=== PATIENT | male | born 1945 | race Caucasian/White ===

== ENCOUNTER 2017-11-02 11:39 | Emergency (ER) | payer MEDICARE, OTHER ==
[2017-11-02] MEDS: predniSONE 20 MG TAB PO (13:13)
[2017-11-02] MEDS: IPRATROPIUM (NEB) 0.5 MG/2.5 ML AMP HHN (13:21)
[2017-11-02] MEDS: ALBUTEROL 0.083% (NEB) 2.5 MG/3 ML AMP HHN (13:21)
== END 2017-11-02 16:20 | disposition home or self-care (01) ==
LOC: FTE 11:39
DX: J45.901 Unspecified asthma with (acute) exacerbation (principal); I10 Essential (primary) hypertension
CPT/HCPCS: 71045; 94664; 99284-25

== ENCOUNTER 2018-01-16 09:12 | Inpatient (IN) | payer MEDICARE, OTHER ==
[2018-01-16 14:37] LABS: ADD MAN DIFF? NO
[2018-01-16 14:56] LABS: ALANINE AMINOTRANSFERASE 45 IU/L (13-69); ALBUMIN 4.6 g/dl (3.3-4.9); ALBUMIN/GLOBULIN RATIO 1.09; ALKALINE PHOSPHATASE 137 IU/L (42-121); ANION GAP 18 (8-16); ASPARTATE AMINO TRANSFERASE 57 IU/L (15-46); BILIRUBIN,INDIRECT 0.3 mg/dl (0-1.1); BILIRUBIN,TOTAL 0.3 mg/dl (0.2-1.3); BLOOD UREA NITROGEN 22 mg/dl (7-20); CALCIUM 9.8 mg/dl (8.4-10.2); CARBON DIOXIDE 29 mmol/L (21-31); CHLORIDE 101 mmol/L (97-110); CREATINE KINASE 143 IU/L (23-200); CREATININE 1.23 mg/dl (0.61-1.24); GLUCOSE 122 mg/dl (70-220); LIPASE 322 U/L (23-300); POTASSIUM 4.7 mmol/L (3.5-5.1); SODIUM 143 mmol/L (135-144); TOTAL PROTEIN 8.8 g/dl (6.1-8.1)
[2018-01-16 14:59] LABS: WHITE BLOOD COUNT 6.4 10^3/ul (4.8-10.8)
[2018-01-16 14:59] LABS: BASOPHIL # 0.1 10^3/ul (0.0-0.1); BASOPHILS % 0.8 % (0.0-2.0); EOSINOPHILS # 0.1 10^3/ul (0.0-0.5); EOSINOPHILS % 1.6 % (0.0-7.0); HEMATOCRIT 31.8 % (42.0-52.0); HEMOGLOBIN 10.4 g/dl (14.0-18.0); LYMPHOCYTES # 0.9 10^3/ul (0.8-2.9); LYMPHOCYTES % 13.3 % (15.0-51.0); MEAN CORPUSCULAR HEMOGLOBIN 28.2 pg (29.0-33.0); MEAN CORPUSCULAR HGB CONC 32.7 g/dl (32.0-37.0); MEAN CORPUSCULAR VOLUME 86.2 fl (82.0-101.0); MEAN PLATELET VOLUME 11.1 fl (7.4-10.4); MONOCYTE # 0.7 10^3/ul (0.3-0.9); MONOCYTES % 10.2 % (0.0-11.0); NEUTROPHIL # 4.7 10^3/ul (1.6-7.5); NEUTROPHILS % 73.6 % (39.0-77.0); PLATELET COUNT 171 10^3/UL (140-415); RED BLOOD COUNT 3.69 10^6/ul (4.70-6.10); RED CELL DISTRIBUTION WIDTH 12.7 % (11.5-14.5)
[2018-01-16 15:05] LABS: INR 1.01; PROTIME 13.4 Sec (11.9-14.9)
[2018-01-16 15:06] LABS: PARTIAL THROMBOPLASTIN TIME 27.5 Sec (25.0-35.0)
[2018-01-16 15:23] LABS: B-TYPE NATRIURETIC PEPTIDE 110 PG/ML (0-125); CK INDEX 0.5
[2018-01-16 15:24] LABS: CK-MB 0.72 ng/ml (0.0-2.4); TROPONIN-I < 0.012 ng/ml (0.00-0.12)
[2018-01-16] MEDS: SOD CHLORIDE 0.9% 100 ML (15:27)
[2018-01-16] MEDS: IODIXANOL LOCM 100 ML BTL (15:27)
[2018-01-16] MEDS: IODIXANOL LOCM 50 ML BTL (15:27)
[2018-01-16] MEDS: ONDANSETRON 4 MG INJ IV (17:27)
[2018-01-16] MEDS: morphine 4 MG/ML VIAL IV (17:27)
[2018-01-16] MEDS: CEFTRIAXONE 1 GM/50 ML (PMX) 50 ML IVPB (18:23)
[2018-01-16] MEDS: AZITHROMYCIN 500MG/NS (PMX) 250 ML IV (19:09)
[2018-01-16 19:19] LABS: ADD UMIC YES; UR ASCORBIC ACID NEGATIVE (NEGATIVE); UR BILIRUBIN (Dip) NEGATIVE (NEGATIVE); UR BLOOD (Dip) NEGATIVE (NEGATIVE); UR CLARITY CLEAR (CLEAR); UR COLOR YELLOW (YELLOW); UR GLUCOSE (Dip) NEGATIVE (NEGATIVE); UR KETONES (Dip) NEGATIVE (NEGATIVE); UR LEUKOCYTE ESTERASE (Dip) NEGATIVE Leu/ul (NEGATIVE); UR NITRITE (Dip) NEGATIVE (NEGATIVE); UR RBC 1 /HPF (0-5); UR TOTAL PROTEIN (Dip) 1+ mg/dl (NEGATIVE); UR UROBILINOGEN (Dip) NEGATIVE (NEGATIVE); UR WBC 0 /HPF (0-5)
[2018-01-16] MEDS ORDERED: NITROGLYCERIN (SL) 0.4 MG TAB SL (20:00)
[2018-01-16] MEDS ORDERED: ACETAMINOPHEN 325 MG TAB PO (20:00)
[2018-01-16] MEDS ORDERED: ONDANSETRON 4 MG INJ IV ×2 (20:00)
[2018-01-16] MEDS ORDERED: NACL 0.9% 3 ML SYG IV (20:00)
[2018-01-16] MEDS: morphine 2 MG INJ IV (20:10)
[2018-01-16] MEDS: ENOXAPARIN 40 MG/0.4 ML SYG SC (20:24)
[2018-01-16] MEDS: AMLODIPINE 10 MG TAB PO (20:42)
[2018-01-16] MEDS: METOPROLOL 25 MG TAB PO (20:43)
[2018-01-16] MEDS: ATORVASTATIN 20 MG TAB PO (20:43)
[2018-01-16] MEDS: BENAZEPRIL 40 MG TAB PO (20:43)
[2018-01-16] MEDS: TAMSULOSIN (SR) 0.4 MG CAP PO (20:44)
[2018-01-16 22:55] LABS: CREATINE KINASE 104 IU/L (23-200)
[2018-01-16 23:09] LABS: CK INDEX 0.4
[2018-01-16 23:12] LABS: CK-MB 0.43 ng/ml (0.0-2.4); TROPONIN-I < 0.012 ng/ml (0.00-0.12)
[2018-01-17] MEDS: ASPIRIN 81 MG TAB PO (08:36)
[2018-01-17] MEDS: AMLODIPINE 10 MG TAB PO (08:40)
[2018-01-17] MEDS: BENAZEPRIL 40 MG TAB PO (08:40)
[2018-01-17] MEDS: METOPROLOL 25 MG TAB PO ×2 (08:41→21:08)
[2018-01-17] MEDS: ENOXAPARIN 40 MG/0.4 ML SYG SC (08:43)
[2018-01-17 08:47] LABS: ADD MAN DIFF? NO
[2018-01-17 08:52] LABS: BASOPHIL # 0.1 10^3/ul (0.0-0.1); BASOPHILS % 0.4 % (0.0-2.0); EOSINOPHILS % 0.1 % (0.0-7.0); HEMATOCRIT 31.6 % (42.0-52.0); HEMOGLOBIN 10.1 g/dl (14.0-18.0); LYMPHOCYTES # 1.1 10^3/ul (0.8-2.9); LYMPHOCYTES % 7.9 % (15.0-51.0); MEAN CORPUSCULAR HEMOGLOBIN 27.8 pg (29.0-33.0); MEAN CORPUSCULAR VOLUME 87.1 fl (82.0-101.0); MEAN PLATELET VOLUME 11.7 fl (7.4-10.4); MONOCYTE # 1.1 10^3/ul (0.3-0.9); MONOCYTES % 7.6 % (0.0-11.0); NEUTROPHIL # 11.6 10^3/ul (1.6-7.5); NEUTROPHILS % 83.5 % (39.0-77.0); PLATELET COUNT 211 10^3/UL (140-415); RED BLOOD COUNT 3.63 10^6/ul (4.70-6.10); RED CELL DISTRIBUTION WIDTH 12.8 % (11.5-14.5)
[2018-01-17 08:52] LABS: WHITE BLOOD COUNT 13.9 10^3/ul (4.8-10.8)
[2018-01-17 09:10] LABS: CREATINE KINASE 77 IU/L (23-200)
[2018-01-17 09:12] LABS: ALANINE AMINOTRANSFERASE 30 IU/L (13-69); ALBUMIN 4.2 g/dl (3.3-4.9); ALKALINE PHOSPHATASE 103 IU/L (42-121); ANION GAP 21 (8-16); ASPARTATE AMINO TRANSFERASE 38 IU/L (15-46); BILIRUBIN,INDIRECT 0.6 mg/dl (0-1.1); BILIRUBIN,TOTAL 0.6 mg/dl (0.2-1.3); BLOOD UREA NITROGEN 32 mg/dl (7-20); CALCIUM 9.1 mg/dl (8.4-10.2); CARBON DIOXIDE 24 mmol/L (21-31); CHLORIDE 99 mmol/L (97-110); CHOLESTEROL 97 mg/dl (100-200); CREATININE 2.69 mg/dl (0.61-1.24); GLUCOSE 142 mg/dl (70-220); HDL CHOLESTEROL 47 mg/dl (31-75); LDL CHOLESTEROL,CALCULATED 38 mg/dl; POTASSIUM 4.9 mmol/L (3.5-5.1); SODIUM 139 mmol/L (135-144); TOTAL PROTEIN 7.7 g/dl (6.1-8.1); TRIGLYCERIDES 62 mg/dl (0-149)
[2018-01-17 09:19] LABS: HEMOGLOBIN A1C 6.2 % (0-5.9)
[2018-01-17 09:23] LABS: CK INDEX 0.5
[2018-01-17 09:24] LABS: CK-MB 0.36 ng/ml (0.0-2.4); TROPONIN-I < 0.012 ng/ml (0.00-0.12)
[2018-01-17 09:34] LABS: LIPASE 243 U/L (23-300)
[2018-01-17 09:44] LABS: CARCINOEMBRYONIC ANTIGEN 2.8 ng/ml (0.0-5.0)
[2018-01-17] MEDS: SOD CHLORIDE 0.9% 1,000 ML IV ×2 (14:46→22:00)
[2018-01-17] MEDS ORDERED: CEFTRIAXONE 1 GM/50 ML (PMX) 50 ML IVPB (17:00)
[2018-01-17] MEDS ORDERED: AZITHROMYCIN 500MG/NS (PMX) 250 ML IVPB (18:00)
[2018-01-17] MEDS: PEG/ELECTROLYTES 4L BTL PO (18:35)
[2018-01-17] MEDS ORDERED: ENOXAPARIN 30 MG/0.3 ML SYG SC (20:30)
[2018-01-17] MEDS: ATORVASTATIN 20 MG TAB PO (21:08)
[2018-01-17] MEDS: TAMSULOSIN (SR) 0.4 MG CAP PO (21:08)
[2018-01-17] MEDS: ALBUTEROL/IPRATROPIUM (NEB) 3 ML AMP HHN (22:03)
[2018-01-17] MEDS: morphine 2 MG INJ IV (22:22)
[2018-01-18] MEDS: SOD CHLORIDE 0.9% 1,000 ML IV ×2 (01:19→10:00)
[2018-01-18] MEDS: ALBUTEROL/IPRATROPIUM (NEB) 3 ML AMP HHN ×5 (02:30→20:03)
[2018-01-18 06:07] LABS: ADD MAN DIFF? NO
[2018-01-18 06:15] LABS: BASOPHILS % 0.3 % (0.0-2.0); EOSINOPHILS # 0.1 10^3/ul (0.0-0.5); EOSINOPHILS % 0.9 % (0.0-7.0); HEMATOCRIT 26.6 % (42.0-52.0); HEMOGLOBIN 8.7 g/dl (14.0-18.0); LYMPHOCYTES # 0.7 10^3/ul (0.8-2.9); MEAN CORPUSCULAR HEMOGLOBIN 28.4 pg (29.0-33.0); MEAN CORPUSCULAR HGB CONC 32.7 g/dl (32.0-37.0); MEAN CORPUSCULAR VOLUME 86.9 fl (82.0-101.0); MEAN PLATELET VOLUME 11.3 fl (7.4-10.4); MONOCYTE # 1.4 10^3/ul (0.3-0.9); MONOCYTES % 12.9 % (0.0-11.0); NEUTROPHIL # 8.2 10^3/ul (1.6-7.5); NEUTROPHILS % 78.3 % (39.0-77.0); PLATELET COUNT 146 10^3/UL (140-415); RED BLOOD COUNT 3.06 10^6/ul (4.70-6.10); RED CELL DISTRIBUTION WIDTH 12.6 % (11.5-14.5)
[2018-01-18 06:15] LABS: WHITE BLOOD COUNT 10.5 10^3/ul (4.8-10.8)
[2018-01-18 06:57] LABS: ALANINE AMINOTRANSFERASE 34 IU/L (13-69); ALBUMIN 3.3 g/dl (3.3-4.9); ALKALINE PHOSPHATASE 91 IU/L (42-121); ANION GAP 17 (8-16); ASPARTATE AMINO TRANSFERASE 32 IU/L (15-46); BILIRUBIN,INDIRECT 0.4 mg/dl (0-1.1); BILIRUBIN,TOTAL 0.4 mg/dl (0.2-1.3); BLOOD UREA NITROGEN 41 mg/dl (7-20); CALCIUM 8.5 mg/dl (8.4-10.2); CARBON DIOXIDE 24 mmol/L (21-31); CHLORIDE 101 mmol/L (97-110); CREATININE 2.25 mg/dl (0.61-1.24); GLUCOSE 130 mg/dl (70-220); SODIUM 137 mmol/L (135-144); TOTAL PROTEIN 6.3 g/dl (6.1-8.1)
[2018-01-18 07:10] LABS: HEPATITIS B SURFACE ANTIGEN NEGATIVE (NEGATIVE)
[2018-01-18 07:28] LABS: HEPATITIS B CORE ANTIBODY NEGATIVE (NEGATIVE); HEPATITIS C VIRAL ANTIBODY NEGATIVE (NEGATIVE)
[2018-01-18 07:30] LABS: HEPATITIS B SURFACE ANTIBODY NEGATIVE (NEGATIVE)
[2018-01-18] MEDS: AMLODIPINE 10 MG TAB PO (09:00)
[2018-01-18] MEDS: ASPIRIN 81 MG TAB PO (09:00)
[2018-01-18] MEDS: METOPROLOL 25 MG TAB PO ×2 (09:43→20:19)
[2018-01-18] MEDS: BENAZEPRIL 40 MG TAB PO (10:10)
[2018-01-18] MEDS: ENOXAPARIN 30 MG/0.3 ML SYG SC (10:41)
[2018-01-18] MEDS ORDERED: EPHEDrine SULFATE 50 MG/5 ML SYG IV (17:30)
[2018-01-18] MEDS ORDERED: MEPERIDINE 25 MG INJ IV (17:30)
[2018-01-18] MEDS ORDERED: MIDAZOLAM 1 MG/ML 2 ML INJ IV (17:30)
[2018-01-18] MEDS ORDERED: FENTAnyl 50 MCG/ML VIAL IV ×3 (17:30)
[2018-01-18] MEDS ORDERED: METOCLOPRAMIDE 10 MG INJ IV (17:30)
[2018-01-18] MEDS ORDERED: hydrALAzine 20 MG INJ IV (17:30)
[2018-01-18] MEDS ORDERED: OXYCODONE/ACETAMINOPHEN (5/325) TAB PO ×2 (17:30)
[2018-01-18] MEDS ORDERED: DIPHENHYDRAMINE 50 MG INJ IV (17:30)
[2018-01-18] MEDS ORDERED: LABETALOL HCL 20MG INJ IV (17:30)
[2018-01-18] MEDS ORDERED: ONDANSETRON 4 MG INJ IV (17:30)
[2018-01-18] MEDS ORDERED: PROPOFOL 20 ML (18:03)
[2018-01-18] MEDS: ATORVASTATIN 20 MG TAB PO (20:18)
[2018-01-18] MEDS: TAMSULOSIN (SR) 0.4 MG CAP PO (20:18)
[2018-01-19] MEDS: ALBUTEROL/IPRATROPIUM (NEB) 3 ML AMP HHN ×6 (00:11→20:37)
[2018-01-19] MEDS: SOD CHLORIDE 0.9% 1,000 ML IV ×4 (01:37→22:26)
[2018-01-19] MEDS: ASPIRIN 81 MG TAB PO (10:06)
[2018-01-19] MEDS: AMLODIPINE 10 MG TAB PO (10:09)
[2018-01-19] MEDS: METOPROLOL 25 MG TAB PO ×2 (10:10→20:30)
[2018-01-19] MEDS: BENAZEPRIL 40 MG TAB PO (10:10)
[2018-01-19] MEDS: ENOXAPARIN 30 MG/0.3 ML SYG SC (10:28)
[2018-01-19 12:09] LABS: ANION GAP 10 (8-16); BLOOD UREA NITROGEN 25 mg/dl (7-20); CALCIUM 8.3 mg/dl (8.4-10.2); CARBON DIOXIDE 23 mmol/L (21-31); CHLORIDE 106 mmol/L (97-110); CREATININE 1.38 mg/dl (0.61-1.24); GLUCOSE 229 mg/dl (70-220); POTASSIUM 4.3 mmol/L (3.5-5.1); SODIUM 135 mmol/L (135-144)
[2018-01-19] MEDS: TAMSULOSIN (SR) 0.4 MG CAP PO (20:29)
[2018-01-19] MEDS: ATORVASTATIN 20 MG TAB PO (20:30)
[2018-01-20] MEDS: ALBUTEROL/IPRATROPIUM (NEB) 3 ML AMP HHN ×6 (00:29→20:54)
[2018-01-20] MEDS: SOD CHLORIDE 0.9% 1,000 ML IV (05:36)
[2018-01-20 06:22] LABS: ANION GAP 13 (8-16); BLOOD UREA NITROGEN 16 mg/dl (7-20); CALCIUM 8.7 mg/dl (8.4-10.2); CARBON DIOXIDE 23 mmol/L (21-31); CHLORIDE 107 mmol/L (97-110); CREATININE 1.15 mg/dl (0.61-1.24); GLUCOSE 127 mg/dl (70-220); POTASSIUM 4.2 mmol/L (3.5-5.1); SODIUM 139 mmol/L (135-144)
[2018-01-20] MEDS: ENOXAPARIN 30 MG/0.3 ML SYG SC (08:24)
[2018-01-20] MEDS: BENAZEPRIL 40 MG TAB PO (08:27)
[2018-01-20] MEDS: ASPIRIN 81 MG TAB PO (08:27)
[2018-01-20] MEDS: AMLODIPINE 10 MG TAB PO (08:27)
[2018-01-20] MEDS: METOPROLOL 25 MG TAB PO ×2 (08:27→20:06)
[2018-01-20] MEDS: TAMSULOSIN (SR) 0.4 MG CAP PO (20:05)
[2018-01-20] MEDS: ATORVASTATIN 20 MG TAB PO (20:06)
[2018-01-21] MEDS: hydrALAzine 20 MG INJ IV (01:07)
[2018-01-21] MEDS: morphine 2 MG INJ IV (01:28)
[2018-01-21] MEDS: ALBUTEROL/IPRATROPIUM (NEB) 3 ML AMP HHN ×6 (01:33→20:29)
[2018-01-21] MEDS: BENAZEPRIL 40 MG TAB PO (09:09)
[2018-01-21] MEDS: AMLODIPINE 10 MG TAB PO (09:09)
[2018-01-21] MEDS: ASPIRIN 81 MG TAB PO (09:09)
[2018-01-21] MEDS: METOPROLOL 25 MG TAB PO ×2 (09:10→21:00)
[2018-01-21] MEDS: ENOXAPARIN 30 MG/0.3 ML SYG SC (09:11)
[2018-01-21] MEDS ORDERED: DEXTROSE 50% 50 ML SYRINGE IV ×2 (12:00)
[2018-01-21] MEDS ORDERED: GLUCOSE GEL 15 GRAM TUBE BUCCAL (12:00)
[2018-01-21] MEDS ORDERED: GLUCOSE GEL 15 GRAM TUBE PO ×2 (12:00)
[2018-01-21] MEDS ORDERED: GLUCAGON 1 MG INJ IM (12:00)
[2018-01-21] MEDS: INSULIN ASPART [NOVOLOG] 3 ML PEN SC ×3 (12:15→21:00)
[2018-01-21 16:59] LABS: INR 1.19; PROTIME 15.3 Sec (11.9-14.9); PT RATIO 1.2
[2018-01-21 17:00] LABS: PARTIAL THROMBOPLASTIN TIME 40.6 Sec (25.0-35.0)
[2018-01-21 20:11] LABS: PSA, FREE <0.1 ng/mL
[2018-01-21] MEDS: ATORVASTATIN 20 MG TAB PO (20:59)
[2018-01-21] MEDS: TAMSULOSIN (SR) 0.4 MG CAP PO (20:59)
[2018-01-21] MEDS: ALBUTEROL HFA 8 GM INHALER INH (21:12)
[2018-01-22] MEDS: ALBUTEROL/IPRATROPIUM (NEB) 3 ML AMP HHN ×6 (01:03→20:18)
[2018-01-22] MEDS: ACCU-CHEK XX (02:00)
[2018-01-22 05:36] LABS: ADD MAN DIFF? NO
[2018-01-22 05:43] LABS: ABNORMAL IP MESSAGE 1; BASOPHILS % 0.2 % (0.0-2.0); EOSINOPHILS # 0.3 10^3/ul (0.0-0.5); EOSINOPHILS % 2.9 % (0.0-7.0); HEMATOCRIT 24.7 % (42.0-52.0); HEMOGLOBIN 7.9 g/dl (14.0-18.0); LYMPHOCYTES # 0.6 10^3/ul (0.8-2.9); LYMPHOCYTES % 6.6 % (15.0-51.0); MEAN CORPUSCULAR HEMOGLOBIN 28.1 pg (29.0-33.0); MEAN CORPUSCULAR VOLUME 87.9 fl (82.0-101.0); MEAN PLATELET VOLUME 10.9 fl (7.4-10.4); MONOCYTE # 1.3 10^3/ul (0.3-0.9); NEUTROPHIL # 6.4 10^3/ul (1.6-7.5); NEUTROPHILS % 74.7 % (39.0-77.0); PLATELET COUNT 169 10^3/UL (140-415); POSITIVE DIFF @See below; RED BLOOD COUNT 2.81 10^6/ul (4.70-6.10); RED CELL DISTRIBUTION WIDTH 12.6 % (11.5-14.5)
[2018-01-22 05:43] LABS: WHITE BLOOD COUNT 8.5 10^3/ul (4.8-10.8)
[2018-01-22 06:24] LABS: ANION GAP 14 (8-16); BLOOD UREA NITROGEN 24 mg/dl (7-20); CALCIUM 8.7 mg/dl (8.4-10.2); CARBON DIOXIDE 25 mmol/L (21-31); CHLORIDE 105 mmol/L (97-110); CREATININE 1.45 mg/dl (0.61-1.24); GLUCOSE 109 mg/dl (70-220); MAGNESIUM 2.1 mg/dl (1.7-2.5); POTASSIUM 4.7 mmol/L (3.5-5.1); SODIUM 139 mmol/L (135-144)
[2018-01-22 06:24] LABS: PHOSPHORUS 4.3 mg/dl (2.5-4.9)
[2018-01-22] MEDS: INSULIN ASPART [NOVOLOG] 3 ML PEN SC ×4 (08:15→21:00)
[2018-01-22] MEDS: ASPIRIN 81 MG TAB PO (08:58)
[2018-01-22] MEDS: METOPROLOL 25 MG TAB PO ×2 (08:58→21:19)
[2018-01-22] MEDS: BENAZEPRIL 40 MG TAB PO ×2 (08:58→21:19)
[2018-01-22] MEDS: AMLODIPINE 10 MG TAB PO ×2 (08:58→21:20)
[2018-01-22] MEDS: ENOXAPARIN 30 MG/0.3 ML SYG SC (08:59)
[2018-01-22] MEDS: SOD CHLORIDE 0.9% 250 ML (14:30)
[2018-01-22] MEDS: MIDAZOLAM 1 MG/ML 2 ML INJ (14:30)
[2018-01-22] MEDS: FENTAnyl 50 MCG/ML VIAL (14:30)
[2018-01-22] MEDS: LIDOCAINE 1% (MDV) 10 ML INJ (14:30)
[2018-01-22] MEDS: morphine 2 MG INJ IV ×2 (17:18→23:38)
[2018-01-22] MEDS: TAMSULOSIN (SR) 0.4 MG CAP PO (21:18)
[2018-01-22] MEDS: ATORVASTATIN 20 MG TAB PO (21:18)
[2018-01-23] MEDS: SOD CHLORIDE 0.9% 500 ML IV (00:53)
[2018-01-23] MEDS: ALBUTEROL/IPRATROPIUM (NEB) 3 ML AMP HHN ×6 (01:43→20:33)
[2018-01-23] MEDS: ACCU-CHEK XX (02:00)
[2018-01-23 05:57] LABS: ADD MAN DIFF? NO
[2018-01-23 05:58] LABS: WHITE BLOOD COUNT 13.3 10^3/ul (4.8-10.8)
[2018-01-23 05:58] LABS: ABNORMAL IP MESSAGE 1; BASOPHILS % 0.2 % (0.0-2.0); EOSINOPHILS # 0.1 10^3/ul (0.0-0.5); EOSINOPHILS % 0.5 % (0.0-7.0); HEMATOCRIT 28.3 % (42.0-52.0); LYMPHOCYTES % 7.4 % (15.0-51.0); MEAN CORPUSCULAR HEMOGLOBIN 28.1 pg (29.0-33.0); MEAN CORPUSCULAR HGB CONC 31.8 g/dl (32.0-37.0); MEAN CORPUSCULAR VOLUME 88.4 fl (82.0-101.0); MEAN PLATELET VOLUME 10.5 fl (7.4-10.4); MONOCYTE # 1.8 10^3/ul (0.3-0.9); MONOCYTES % 13.5 % (0.0-11.0); NEUTROPHIL # 10.4 10^3/ul (1.6-7.5); NEUTROPHILS % 77.8 % (39.0-77.0); PLATELET COUNT 228 10^3/UL (140-415); POSITIVE DIFF @See below; RED CELL DISTRIBUTION WIDTH 12.8 % (11.5-14.5)
[2018-01-23 06:16] LABS: ANION GAP 16 (8-16); BLOOD UREA NITROGEN 27 mg/dl (7-20); CALCIUM 8.6 mg/dl (8.4-10.2); CARBON DIOXIDE 23 mmol/L (21-31); CHLORIDE 104 mmol/L (97-110); CREATININE 1.57 mg/dl (0.61-1.24); GLUCOSE 139 mg/dl (70-220); POTASSIUM 4.6 mmol/L (3.5-5.1); SODIUM 138 mmol/L (135-144)
[2018-01-23] MEDS: BENAZEPRIL 40 MG TAB PO (08:26)
[2018-01-23] MEDS: AMLODIPINE 10 MG TAB PO (08:26)
[2018-01-23] MEDS: METOPROLOL 25 MG TAB PO ×2 (08:26→20:39)
[2018-01-23] MEDS: morphine 2 MG INJ IV (08:33)
[2018-01-23] MEDS: INSULIN ASPART [NOVOLOG] 3 ML PEN SC ×4 (08:57→20:39)
[2018-01-23] MEDS ORDERED: morphine 2 MG INJ IV (12:30)
[2018-01-23] MEDS: TAMSULOSIN (SR) 0.4 MG CAP PO (20:38)
[2018-01-23] MEDS: ATORVASTATIN 20 MG TAB PO (20:38)
[2018-01-23] MEDS ORDERED: ALBUTEROL/IPRATROPIUM (NEB) 3 ML AMP HHN (23:30)
[2018-01-24] MEDS: ACCU-CHEK XX (01:39)
[2018-01-24 07:34] LABS: ADD MAN DIFF? NO
[2018-01-24 07:52] LABS: WHITE BLOOD COUNT 14.6 10^3/ul (4.8-10.8)
[2018-01-24 07:52] LABS: ABNORMAL IP MESSAGE 1; BASOPHILS % 0.2 % (0.0-2.0); EOSINOPHILS # 0.1 10^3/ul (0.0-0.5); EOSINOPHILS % 0.9 % (0.0-7.0); HEMATOCRIT 23.8 % (42.0-52.0); HEMOGLOBIN 7.6 g/dl (14.0-18.0); LYMPHOCYTES # 0.8 10^3/ul (0.8-2.9); LYMPHOCYTES % 5.4 % (15.0-51.0); MEAN CORPUSCULAR HGB CONC 31.9 g/dl (32.0-37.0); MEAN CORPUSCULAR VOLUME 87.8 fl (82.0-101.0); MEAN PLATELET VOLUME 11.3 fl (7.4-10.4); MONOCYTE # 1.9 10^3/ul (0.3-0.9); MONOCYTES % 12.8 % (0.0-11.0); NEUTROPHIL # 11.6 10^3/ul (1.6-7.5); NEUTROPHILS % 79.9 % (39.0-77.0); NUCLEATED RED BLOOD CELLS% 0.1 /100WBC (0.0-0.0); PLATELET COUNT 197 10^3/UL (140-415); POSITIVE DIFF @See below; RED BLOOD COUNT 2.71 10^6/ul (4.70-6.10); RED CELL DISTRIBUTION WIDTH 13.1 % (11.5-14.5)
[2018-01-24] MEDS: INSULIN ASPART [NOVOLOG] 3 ML PEN SC ×4 (08:15→21:00)
[2018-01-24 08:19] LABS: ANION GAP 15 (8-16); BLOOD UREA NITROGEN 45 mg/dl (7-20); CALCIUM 8.3 mg/dl (8.4-10.2); CARBON DIOXIDE 22 mmol/L (21-31); CHLORIDE 104 mmol/L (97-110); CREATININE 2.37 mg/dl (0.61-1.24); GLUCOSE 129 mg/dl (70-220); POTASSIUM 5.1 mmol/L (3.5-5.1); SODIUM 136 mmol/L (135-144)
[2018-01-24] MEDS: AMLODIPINE 10 MG TAB PO (08:56)
[2018-01-24] MEDS: METOPROLOL 25 MG TAB PO ×2 (08:57→21:31)
[2018-01-24] MEDS: BENAZEPRIL 40 MG TAB PO (08:57)
[2018-01-24] MEDS: ALBUTEROL/IPRATROPIUM (NEB) 3 ML AMP HHN ×4 (09:05→20:02)
[2018-01-24] MEDS: IOHEXOL 14.3 MG(I)/ML (ADULT) BTL PO (12:30)
[2018-01-24] MEDS: LACTATED RINGER'S 1,000 ML IV ×2 (13:25→20:30)
[2018-01-24 14:57] LABS: HEMOGLOBIN 7.4 g/dl (14.0-18.0)
[2018-01-24] MEDS: PIPER-TAZO 2.25 GM (PMX) 50 ML IVPB (21:26)
[2018-01-24] MEDS: ATORVASTATIN 20 MG TAB PO (21:31)
[2018-01-24] MEDS: TAMSULOSIN (SR) 0.4 MG CAP PO (21:31)
[2018-01-25] MEDS: PIPER-TAZO 2.25 GM (PMX) 50 ML IVPB ×4 (01:07→20:57)
[2018-01-25] MEDS: ACCU-CHEK XX (02:00)
[2018-01-25] MEDS: LACTATED RINGER'S 1,000 ML IV ×3 (02:25→20:58)
[2018-01-25 06:07] LABS: ADD MAN DIFF? NO
[2018-01-25 06:22] LABS: WHITE BLOOD COUNT 12.4 10^3/ul (4.8-10.8)
[2018-01-25 06:22] LABS: BASOPHILS % 0.2 % (0.0-2.0); EOSINOPHILS # 0.1 10^3/ul (0.0-0.5); EOSINOPHILS % 0.7 % (0.0-7.0); HEMATOCRIT 22.6 % (42.0-52.0); HEMOGLOBIN 7.4 g/dl (14.0-18.0); LYMPHOCYTES # 0.7 10^3/ul (0.8-2.9); LYMPHOCYTES % 5.4 % (15.0-51.0); MEAN CORPUSCULAR HEMOGLOBIN 28.5 pg (29.0-33.0); MEAN CORPUSCULAR HGB CONC 32.7 g/dl (32.0-37.0); MEAN CORPUSCULAR VOLUME 86.9 fl (82.0-101.0); MEAN PLATELET VOLUME 10.9 fl (7.4-10.4); MONOCYTE # 1.4 10^3/ul (0.3-0.9); MONOCYTES % 11.2 % (0.0-11.0); NEUTROPHIL # 10.1 10^3/ul (1.6-7.5); NEUTROPHILS % 81.9 % (39.0-77.0); PLATELET COUNT 184 10^3/UL (140-415)
[2018-01-25 06:35] LABS: ANION GAP 13 (8-16); BLOOD UREA NITROGEN 47 mg/dl (7-20); CALCIUM 8.3 mg/dl (8.4-10.2); CARBON DIOXIDE 23 mmol/L (21-31); CHLORIDE 106 mmol/L (97-110); CREATININE 1.88 mg/dl (0.61-1.24); GLUCOSE 113 mg/dl (70-220); POTASSIUM 4.7 mmol/L (3.5-5.1); SODIUM 137 mmol/L (135-144)
[2018-01-25] MEDS: INSULIN ASPART [NOVOLOG] 3 ML PEN SC ×4 (08:07→20:58)
[2018-01-25] MEDS: ALBUTEROL/IPRATROPIUM (NEB) 3 ML AMP HHN ×4 (08:32→20:39)
[2018-01-25] MEDS: BENAZEPRIL 40 MG TAB PO (09:36)
[2018-01-25] MEDS: METOPROLOL 25 MG TAB PO ×2 (09:37→20:58)
[2018-01-25] MEDS: AMLODIPINE 10 MG TAB PO (09:37)
[2018-01-25] MEDS: SOD CHLORIDE 0.9% 250 ML IV* (10:42)
[2018-01-25 16:18] LABS: IMMEDIATE SPIN CROSSMATCH 1 1
[2018-01-25] MEDS: ATORVASTATIN 20 MG TAB PO (20:57)
[2018-01-25] MEDS: TAMSULOSIN (SR) 0.4 MG CAP PO (20:57)
[2018-01-26] MEDS: ACCU-CHEK XX (02:00)
[2018-01-26 06:11] LABS: ADD MAN DIFF? NO
[2018-01-26 06:16] LABS: WHITE BLOOD COUNT 10.9 10^3/ul (4.8-10.8)
[2018-01-26 06:16] LABS: BASOPHILS % 0.3 % (0.0-2.0); EOSINOPHILS # 0.2 10^3/ul (0.0-0.5); EOSINOPHILS % 1.4 % (0.0-7.0); HEMATOCRIT 25.5 % (42.0-52.0); HEMOGLOBIN 8.2 g/dl (14.0-18.0); LYMPHOCYTES # 0.6 10^3/ul (0.8-2.9); LYMPHOCYTES % 5.5 % (15.0-51.0); MEAN CORPUSCULAR HEMOGLOBIN 27.7 pg (29.0-33.0); MEAN CORPUSCULAR HGB CONC 32.2 g/dl (32.0-37.0); MEAN CORPUSCULAR VOLUME 86.1 fl (82.0-101.0); MEAN PLATELET VOLUME 10.8 fl (7.4-10.4); MONOCYTE # 1.2 10^3/ul (0.3-0.9); MONOCYTES % 11.1 % (0.0-11.0); NEUTROPHIL # 8.8 10^3/ul (1.6-7.5); NEUTROPHILS % 80.8 % (39.0-77.0); PLATELET COUNT 194 10^3/UL (140-415); RED BLOOD COUNT 2.96 10^6/ul (4.70-6.10); RED CELL DISTRIBUTION WIDTH 14.1 % (11.5-14.5)
[2018-01-26 06:42] LABS: ANION GAP 15 (8-16); BLOOD UREA NITROGEN 34 mg/dl (7-20); CALCIUM 8.3 mg/dl (8.4-10.2); CARBON DIOXIDE 22 mmol/L (21-31); CHLORIDE 108 mmol/L (97-110); CREATININE 1.48 mg/dl (0.61-1.24); GLUCOSE 105 mg/dl (70-220); POTASSIUM 4.5 mmol/L (3.5-5.1); SODIUM 140 mmol/L (135-144)
[2018-01-26] MEDS: PIPER-TAZO 2.25 GM (PMX) 50 ML IVPB ×5 (06:52→23:35)
[2018-01-26] MEDS: ALBUTEROL/IPRATROPIUM (NEB) 3 ML AMP HHN ×4 (07:52→20:17)
[2018-01-26] MEDS: INSULIN ASPART [NOVOLOG] 3 ML PEN SC ×4 (08:15→20:56)
[2018-01-26] MEDS: BENAZEPRIL 40 MG TAB PO (09:21)
[2018-01-26] MEDS: AMLODIPINE 10 MG TAB PO (09:21)
[2018-01-26] MEDS: METOPROLOL 25 MG TAB PO ×2 (09:21→20:52)
[2018-01-26] MEDS: LACTATED RINGER'S 1,000 ML IV ×2 (10:22→23:35)
[2018-01-26] MEDS: ATORVASTATIN 20 MG TAB PO (20:52)
[2018-01-26] MEDS: TAMSULOSIN (SR) 0.4 MG CAP PO (20:52)
[2018-01-27] MEDS: ACCU-CHEK XX (01:51)
[2018-01-27] MEDS: LACTATED RINGER'S 1,000 ML IV ×2 (03:46→16:28)
[2018-01-27] MEDS: PIPER-TAZO 2.25 GM (PMX) 50 ML IVPB ×3 (05:49→17:29)
[2018-01-27 06:08] LABS: ADD MAN DIFF? NO
[2018-01-27 06:11] LABS: ABNORMAL IP MESSAGE 1; BASOPHILS % 0.2 % (0.0-2.0); EOSINOPHILS # 0.2 10^3/ul (0.0-0.5); EOSINOPHILS % 1.5 % (0.0-7.0); HEMATOCRIT 26.7 % (42.0-52.0); HEMOGLOBIN 8.6 g/dl (14.0-18.0); LYMPHOCYTES # 0.6 10^3/ul (0.8-2.9); LYMPHOCYTES % 5.7 % (15.0-51.0); MEAN CORPUSCULAR HEMOGLOBIN 27.4 pg (29.0-33.0); MEAN CORPUSCULAR HGB CONC 32.2 g/dl (32.0-37.0); MEAN PLATELET VOLUME 10.5 fl (7.4-10.4); MONOCYTE # 1.1 10^3/ul (0.3-0.9); MONOCYTES % 11.4 % (0.0-11.0); NEUTROPHIL # 7.8 10^3/ul (1.6-7.5); NEUTROPHILS % 80.3 % (39.0-77.0); PLATELET COUNT 209 10^3/UL (140-415); POSITIVE DIFF @See below; RED BLOOD COUNT 3.14 10^6/ul (4.70-6.10); RED CELL DISTRIBUTION WIDTH 14.1 % (11.5-14.5)
[2018-01-27 06:11] LABS: WHITE BLOOD COUNT 9.8 10^3/ul (4.8-10.8)
[2018-01-27] MEDS: IBUPROFEN 400 MG TAB PO (06:29)
[2018-01-27 06:34] LABS: ANION GAP 14 (8-16); BLOOD UREA NITROGEN 22 mg/dl (7-20); CALCIUM 8.5 mg/dl (8.4-10.2); CARBON DIOXIDE 23 mmol/L (21-31); CHLORIDE 108 mmol/L (97-110); CREATININE 1.31 mg/dl (0.61-1.24); GLUCOSE 114 mg/dl (70-220); POTASSIUM 4.4 mmol/L (3.5-5.1); SODIUM 141 mmol/L (135-144)
[2018-01-27] MEDS: INSULIN ASPART [NOVOLOG] 3 ML PEN SC ×4 (07:49→20:52)
[2018-01-27] MEDS: BENAZEPRIL 40 MG TAB PO (08:02)
[2018-01-27] MEDS: AMLODIPINE 10 MG TAB PO (08:02)
[2018-01-27] MEDS: METOPROLOL 25 MG TAB PO ×2 (08:03→20:53)
[2018-01-27] MEDS: ALBUTEROL/IPRATROPIUM (NEB) 3 ML AMP HHN ×4 (08:35→20:22)
[2018-01-27] MEDS: ATORVASTATIN 20 MG TAB PO (20:49)
[2018-01-27] MEDS: TAMSULOSIN (SR) 0.4 MG CAP PO (20:49)
[2018-01-28] MEDS: PIPER-TAZO 2.25 GM (PMX) 50 ML IVPB ×4 (00:13→17:53)
[2018-01-28] MEDS: morphine LIQ (10 MG/5 ML) CUP PO (00:49)
[2018-01-28] MEDS: ACCU-CHEK XX (02:00)
[2018-01-28 06:01] LABS: ADD MAN DIFF? NO
[2018-01-28] MEDS: LACTATED RINGER'S 1,000 ML IV ×2 (06:04→19:46)
[2018-01-28 06:12] LABS: BASOPHILS % 0.3 % (0.0-2.0); EOSINOPHILS % 0.3 % (0.0-7.0); HEMATOCRIT 31.4 % (42.0-52.0); HEMOGLOBIN 10.1 g/dl (14.0-18.0); LYMPHOCYTES # 0.7 10^3/ul (0.8-2.9); MEAN CORPUSCULAR HEMOGLOBIN 27.7 pg (29.0-33.0); MEAN CORPUSCULAR HGB CONC 32.2 g/dl (32.0-37.0); MEAN CORPUSCULAR VOLUME 86.3 fl (82.0-101.0); MEAN PLATELET VOLUME 10.7 fl (7.4-10.4); MONOCYTES % 7.1 % (0.0-11.0); NEUTROPHIL # 12.4 10^3/ul (1.6-7.5); PLATELET COUNT 311 10^3/UL (140-415); RED BLOOD COUNT 3.64 10^6/ul (4.70-6.10); RED CELL DISTRIBUTION WIDTH 13.7 % (11.5-14.5)
[2018-01-28 06:12] LABS: WHITE BLOOD COUNT 14.6 10^3/ul (4.8-10.8)
[2018-01-28 06:47] LABS: ANION GAP 12 (8-16); BLOOD UREA NITROGEN 25 mg/dl (7-20); CALCIUM 7.9 mg/dl (8.4-10.2); CARBON DIOXIDE 23 mmol/L (21-31); CHLORIDE 106 mmol/L (97-110); CREATININE 1.79 mg/dl (0.61-1.24); GLUCOSE 155 mg/dl (70-220); POTASSIUM 5.4 mmol/L (3.5-5.1); SODIUM 136 mmol/L (135-144)
[2018-01-28] MEDS: INSULIN ASPART [NOVOLOG] 3 ML PEN SC ×4 (08:07→20:53)
[2018-01-28] MEDS: METOPROLOL 25 MG TAB PO ×3 (08:14→20:57)
[2018-01-28] MEDS: AMLODIPINE 10 MG TAB PO (08:14)
[2018-01-28] MEDS: ALBUTEROL/IPRATROPIUM (NEB) 3 ML AMP HHN ×4 (09:15→20:49)
[2018-01-28] MEDS: BARIUM SULF 2% 450 ML BTL (BERRY SMOOTHIE) PO (13:21)
[2018-01-28] MEDS: TAMSULOSIN (SR) 0.4 MG CAP PO ×2 (20:52→20:57)
[2018-01-28] MEDS: ATORVASTATIN 20 MG TAB PO ×2 (20:53→20:57)
[2018-01-29] MEDS: PIPER-TAZO 2.25 GM (PMX) 50 ML IVPB ×3 (00:21→12:05)
[2018-01-29] MEDS: LACTATED RINGER'S 1,000 ML IV ×2 (00:21→16:37)
[2018-01-29] MEDS: ACCU-CHEK XX (01:50)
[2018-01-29 05:47] LABS: ADD MAN DIFF? NO
[2018-01-29 05:54] LABS: WHITE BLOOD COUNT 12.3 10^3/ul (4.8-10.8)
[2018-01-29 05:54] LABS: BASOPHILS % 0.2 % (0.0-2.0); EOSINOPHILS # 0.1 10^3/ul (0.0-0.5); EOSINOPHILS % 0.8 % (0.0-7.0); HEMATOCRIT 25.1 % (42.0-52.0); HEMOGLOBIN 8.3 g/dl (14.0-18.0); LYMPHOCYTES # 0.7 10^3/ul (0.8-2.9); MEAN CORPUSCULAR HEMOGLOBIN 28.1 pg (29.0-33.0); MEAN CORPUSCULAR HGB CONC 33.1 g/dl (32.0-37.0); MEAN CORPUSCULAR VOLUME 85.1 fl (82.0-101.0); MEAN PLATELET VOLUME 10.6 fl (7.4-10.4); MONOCYTE # 1.5 10^3/ul (0.3-0.9); MONOCYTES % 11.8 % (0.0-11.0); NEUTROPHIL # 9.8 10^3/ul (1.6-7.5); NEUTROPHILS % 79.4 % (39.0-77.0); PLATELET COUNT 243 10^3/UL (140-415); RED BLOOD COUNT 2.95 10^6/ul (4.70-6.10); RED CELL DISTRIBUTION WIDTH 13.9 % (11.5-14.5)
[2018-01-29 06:33] LABS: ANION GAP 17 (8-16); BLOOD UREA NITROGEN 35 mg/dl (7-20); CALCIUM 8.3 mg/dl (8.4-10.2); CARBON DIOXIDE 22 mmol/L (21-31); CHLORIDE 106 mmol/L (97-110); CREATININE 2.51 mg/dl (0.61-1.24); GLUCOSE 105 mg/dl (70-220); POTASSIUM 4.7 mmol/L (3.5-5.1); SODIUM 140 mmol/L (135-144)
[2018-01-29] MEDS: INSULIN ASPART [NOVOLOG] 3 ML PEN SC ×4 (08:15→20:44)
[2018-01-29] MEDS: AMLODIPINE 10 MG TAB PO (09:00)
[2018-01-29] MEDS: ALBUTEROL/IPRATROPIUM (NEB) 3 ML AMP HHN ×4 (09:00→20:04)
[2018-01-29] MEDS: METOPROLOL 25 MG TAB PO ×2 (09:00→20:43)
[2018-01-29] MEDS: CEFEPIME 2GM/50 ML (PMX) 50 ML IVPB (17:59)
[2018-01-29 20:02] LABS: ADD UMIC YES; UR AMORPHOUS CRYSTAL MODERATE /HPF (NONE SEEN); UR ASCORBIC ACID NEGATIVE (NEGATIVE); UR BILIRUBIN (Dip) NEGATIVE (NEGATIVE); UR BLOOD (Dip) 1+ mg/dL (NEGATIVE); UR CLARITY SLIGHTLY CLOUDY (CLEAR); UR COLOR YELLOW (YELLOW); UR GLUCOSE (Dip) NEGATIVE (NEGATIVE); UR KETONES (Dip) TRACE mg/dL (NEGATIVE); UR LEUKOCYTE ESTERASE (Dip) NEGATIVE Leu/ul (NEGATIVE); UR NITRITE (Dip) NEGATIVE (NEGATIVE); UR RBC 1 /HPF (0-5); UR SPECIFIC GRAVITY (Dip) 1.016 (1.003-1.030); UR TOTAL PROTEIN (Dip) 1+ mg/dl (NEGATIVE); UR UROBILINOGEN (Dip) NEGATIVE (NEGATIVE); UR WBC 3 /HPF (0-5)
[2018-01-29 20:09] LABS: CREATININE,URINE RANDOM 120.37 mg/dl (20-370)
[2018-01-29 20:10] LABS: SODIUM,URINE RANDOM 42 mmol/L (30-90)
[2018-01-29] MEDS: ATORVASTATIN 20 MG TAB PO (20:43)
[2018-01-29] MEDS: TAMSULOSIN (SR) 0.4 MG CAP PO (20:43)
[2018-01-29] MEDS: hydrALAzine 20 MG INJ IV (20:45)
[2018-01-29] MEDS: metroNIDAZOLE 500 MG/NS (PMX) 100 ML IVPB (21:56)
[2018-01-30] MEDS: ACCU-CHEK XX (02:00)
[2018-01-30] MEDS: hydrALAzine 20 MG INJ IV ×3 (02:47→18:03)
[2018-01-30] MEDS: metroNIDAZOLE 500 MG/NS (PMX) 100 ML IVPB ×3 (05:32→22:14)
[2018-01-30 06:03] LABS: ADD MAN DIFF? NO
[2018-01-30 06:05] LABS: ABNORMAL IP MESSAGE 1; BASOPHILS % 0.2 % (0.0-2.0); EOSINOPHILS % 0.2 % (0.0-7.0); HEMATOCRIT 25.7 % (42.0-52.0); HEMOGLOBIN 8.4 g/dl (14.0-18.0); LYMPHOCYTES # 0.6 10^3/ul (0.8-2.9); LYMPHOCYTES % 4.2 % (15.0-51.0); MEAN CORPUSCULAR HEMOGLOBIN 27.8 pg (29.0-33.0); MEAN CORPUSCULAR HGB CONC 32.7 g/dl (32.0-37.0); MEAN CORPUSCULAR VOLUME 85.1 fl (82.0-101.0); MEAN PLATELET VOLUME 10.3 fl (7.4-10.4); MONOCYTE # 1.5 10^3/ul (0.3-0.9); MONOCYTES % 10.5 % (0.0-11.0); NEUTROPHIL # 11.5 10^3/ul (1.6-7.5); NEUTROPHILS % 83.3 % (39.0-77.0); PLATELET COUNT 241 10^3/UL (140-415); POSITIVE DIFF @See below; RED BLOOD COUNT 3.02 10^6/ul (4.70-6.10); RED CELL DISTRIBUTION WIDTH 13.8 % (11.5-14.5)
[2018-01-30 06:05] LABS: WHITE BLOOD COUNT 13.8 10^3/ul (4.8-10.8)
[2018-01-30 06:17] LABS: ALANINE AMINOTRANSFERASE 82 IU/L (13-69); ALKALINE PHOSPHATASE 128 IU/L (42-121); ASPARTATE AMINO TRANSFERASE 81 IU/L (15-46); BILIRUBIN,INDIRECT 0.3 mg/dl (0-1.1); BILIRUBIN,TOTAL 0.3 mg/dl (0.2-1.3); TOTAL PROTEIN 6.2 g/dl (6.1-8.1)
[2018-01-30 06:23] LABS: ANION GAP 19 (8-16); BLOOD UREA NITROGEN 31 mg/dl (7-20); CALCIUM 8.7 mg/dl (8.4-10.2); CARBON DIOXIDE 25 mmol/L (21-31); CHLORIDE 106 mmol/L (97-110); CREATININE 1.89 mg/dl (0.61-1.24); GLUCOSE 96 mg/dl (70-220); SODIUM 146 mmol/L (135-144)
[2018-01-30] MEDS: LACTATED RINGER'S 1,000 ML IV ×3 (06:26→19:50)
[2018-01-30] MEDS: ALBUTEROL/IPRATROPIUM (NEB) 3 ML AMP HHN ×4 (08:13→20:27)
[2018-01-30] MEDS: INSULIN ASPART [NOVOLOG] 3 ML PEN SC ×4 (08:15→21:00)
[2018-01-30] MEDS: METOPROLOL 25 MG TAB PO ×2 (08:40→22:15)
[2018-01-30] MEDS: AMLODIPINE 10 MG TAB PO (08:40)
[2018-01-30] MEDS: SODIUM CHLORIDE 0.9% 1L BAG IV* (10:19)
[2018-01-30] MEDS: CEFEPIME 2GM/50 ML (PMX) 50 ML IVPB (17:06)
[2018-01-30 18:41] LABS: LACTIC ACID 1.1 mmol/L (0.5-2.0)
[2018-01-30] MEDS: ATORVASTATIN 20 MG TAB PO (22:14)
[2018-01-30] MEDS: TAMSULOSIN (SR) 0.4 MG CAP PO (22:14)
[2018-01-31] MEDS: ACCU-CHEK XX (02:00)
[2018-01-31] MEDS: hydrALAzine 20 MG INJ IV (02:41)
[2018-01-31] MEDS: LACTATED RINGER'S 1,000 ML IV ×3 (04:54→14:11)
[2018-01-31] MEDS: metroNIDAZOLE 500 MG/NS (PMX) 100 ML IVPB ×3 (06:02→21:34)
[2018-01-31 06:19] LABS: ADD MAN DIFF? NO
[2018-01-31 06:28] LABS: WHITE BLOOD COUNT 15.5 10^3/ul (4.8-10.8)
[2018-01-31 06:28] LABS: ABNORMAL IP MESSAGE 1; BASOPHILS % 0.1 % (0.0-2.0); EOSINOPHILS % 0.1 % (0.0-7.0); HEMATOCRIT 25.3 % (42.0-52.0); HEMOGLOBIN 8.2 g/dl (14.0-18.0); LYMPHOCYTES # 0.6 10^3/ul (0.8-2.9); LYMPHOCYTES % 3.6 % (15.0-51.0); MEAN CORPUSCULAR HEMOGLOBIN 27.7 pg (29.0-33.0); MEAN CORPUSCULAR HGB CONC 32.4 g/dl (32.0-37.0); MEAN CORPUSCULAR VOLUME 85.5 fl (82.0-101.0); MEAN PLATELET VOLUME 10.7 fl (7.4-10.4); MONOCYTE # 1.6 10^3/ul (0.3-0.9); MONOCYTES % 10.5 % (0.0-11.0); NEUTROPHILS % 83.9 % (39.0-77.0); PLATELET COUNT 232 10^3/UL (140-415); POSITIVE DIFF @See below; RED BLOOD COUNT 2.96 10^6/ul (4.70-6.10)
[2018-01-31 06:50] LABS: PHOSPHORUS 2.8 mg/dl (2.5-4.9)
[2018-01-31 06:59] LABS: ANION GAP 17 (8-16); BLOOD UREA NITROGEN 24 mg/dl (7-20); CALCIUM 8.3 mg/dl (8.4-10.2); CARBON DIOXIDE 28 mmol/L (21-31); CHLORIDE 110 mmol/L (97-110); GLUCOSE 131 mg/dl (70-220); POTASSIUM 3.8 mmol/L (3.5-5.1); SODIUM 151 mmol/L (135-144)
[2018-01-31] MEDS: INSULIN ASPART [NOVOLOG] 3 ML PEN SC ×4 (08:15→20:55)
[2018-01-31] MEDS: AMLODIPINE 10 MG TAB PO (08:30)
[2018-01-31] MEDS: METOPROLOL 25 MG TAB PO ×2 (08:30→20:51)
[2018-01-31] MEDS: ALBUTEROL/IPRATROPIUM (NEB) 3 ML AMP HHN ×4 (11:36→21:21)
[2018-01-31] MEDS: PANTOPRAZOLE IV 80 MG in SOD CHLORIDE 0.9% 100 ML IVPB (17:29)
[2018-01-31] MEDS: CEFEPIME 2GM/50 ML (PMX) 50 ML IVPB (17:35)
[2018-01-31] MEDS: PANTOPRAZOLE IV 80 MG in SOD CHLORIDE 0.9% 100 ML IV (18:05)
[2018-01-31] MEDS: TAMSULOSIN (SR) 0.4 MG CAP PO (20:51)
[2018-01-31] MEDS: ATORVASTATIN 20 MG TAB PO (20:51)
[2018-02-01] MEDS: LACTATED RINGER'S 1,000 ML IV ×3 (01:05→12:10)
[2018-02-01] MEDS: hydrALAzine 20 MG INJ IV ×2 (01:42→20:36)
[2018-02-01] MEDS: ACCU-CHEK XX (02:00)
[2018-02-01] MEDS: metroNIDAZOLE 500 MG/NS (PMX) 100 ML IVPB ×2 (05:13→14:12)
[2018-02-01 05:30] LABS: ADD MAN DIFF? NO
[2018-02-01 05:46] LABS: ABNORMAL IP MESSAGE 1; BASOPHILS % 0.2 % (0.0-2.0); HEMATOCRIT 27.5 % (42.0-52.0); HEMOGLOBIN 8.7 g/dl (14.0-18.0); LYMPHOCYTES # 0.6 10^3/ul (0.8-2.9); LYMPHOCYTES % 3.4 % (15.0-51.0); MEAN CORPUSCULAR HEMOGLOBIN 27.6 pg (29.0-33.0); MEAN CORPUSCULAR HGB CONC 31.6 g/dl (32.0-37.0); MEAN CORPUSCULAR VOLUME 87.3 fl (82.0-101.0); MEAN PLATELET VOLUME 10.7 fl (7.4-10.4); MONOCYTE # 1.4 10^3/ul (0.3-0.9); MONOCYTES % 8.1 % (0.0-11.0); NEUTROPHIL # 14.4 10^3/ul (1.6-7.5); NEUTROPHILS % 86.6 % (39.0-77.0); PLATELET COUNT 215 10^3/UL (140-415); POSITIVE DIFF @See below; RED BLOOD COUNT 3.15 10^6/ul (4.70-6.10); RED CELL DISTRIBUTION WIDTH 14.1 % (11.5-14.5)
[2018-02-01 05:46] LABS: WHITE BLOOD COUNT 16.7 10^3/ul (4.8-10.8)
[2018-02-01 06:41] LABS: ANION GAP 16 (8-16); BLOOD UREA NITROGEN 23 mg/dl (7-20); CALCIUM 8.5 mg/dl (8.4-10.2); CARBON DIOXIDE 28 mmol/L (21-31); CHLORIDE 110 mmol/L (97-110); CREATININE 1.27 mg/dl (0.61-1.24); GLUCOSE 132 mg/dl (70-220); MAGNESIUM 2.1 mg/dl (1.7-2.5); PHOSPHORUS 2.6 mg/dl (2.5-4.9); POTASSIUM 3.6 mmol/L (3.5-5.1); SODIUM 150 mmol/L (135-144)
[2018-02-01] MEDS: PANTOPRAZOLE IV 80 MG in SOD CHLORIDE 0.9% 100 ML IV ×3 (06:58→17:44)
[2018-02-01] MEDS: INSULIN ASPART [NOVOLOG] 3 ML PEN SC ×4 (08:15→20:24)
[2018-02-01] MEDS: METOPROLOL 25 MG TAB PO ×2 (08:57→20:23)
[2018-02-01] MEDS: AMLODIPINE 10 MG TAB PO (08:57)
[2018-02-01] MEDS: ALBUTEROL/IPRATROPIUM (NEB) 3 ML AMP HHN ×4 (10:11→19:55)
[2018-02-01] MEDS: CEFEPIME 2GM/50 ML (PMX) 50 ML IVPB (17:43)
[2018-02-01] MEDS: TAMSULOSIN (SR) 0.4 MG CAP PO (20:23)
[2018-02-01] MEDS: ATORVASTATIN 20 MG TAB PO (20:23)
[2018-02-02] MEDS: ACCU-CHEK XX (02:00)
[2018-02-02 06:17] LABS: ADD MAN DIFF? NO
[2018-02-02 06:21] LABS: WHITE BLOOD COUNT 15.4 10^3/ul (4.8-10.8)
[2018-02-02 06:21] LABS: BASOPHILS % 0.1 % (0.0-2.0); HEMOGLOBIN 7.8 g/dl (14.0-18.0); LYMPHOCYTES # 0.7 10^3/ul (0.8-2.9); LYMPHOCYTES % 4.4 % (15.0-51.0); MEAN CORPUSCULAR HEMOGLOBIN 27.5 pg (29.0-33.0); MEAN CORPUSCULAR HGB CONC 31.2 g/dl (32.0-37.0); MEAN PLATELET VOLUME 11.1 fl (7.4-10.4); MONOCYTE # 1.2 10^3/ul (0.3-0.9); MONOCYTES % 7.9 % (0.0-11.0); NEUTROPHIL # 13.2 10^3/ul (1.6-7.5); NEUTROPHILS % 86.2 % (39.0-77.0); PLATELET COUNT 204 10^3/UL (140-415); RED BLOOD COUNT 2.84 10^6/ul (4.70-6.10); RED CELL DISTRIBUTION WIDTH 14.4 % (11.5-14.5)
[2018-02-02 06:57] LABS: ANION GAP 13 (8-16); BLOOD UREA NITROGEN 25 mg/dl (7-20); CALCIUM 8.3 mg/dl (8.4-10.2); CARBON DIOXIDE 33 mmol/L (21-31); CHLORIDE 110 mmol/L (97-110); CREATININE 1.34 mg/dl (0.61-1.24); GLUCOSE 159 mg/dl (70-220); MAGNESIUM 2.2 mg/dl (1.7-2.5); PHOSPHORUS 2.3 mg/dl (2.5-4.9); POTASSIUM 3.5 mmol/L (3.5-5.1); SODIUM 152 mmol/L (135-144)
[2018-02-02] MEDS: INSULIN ASPART [NOVOLOG] 3 ML PEN SC ×4 (07:51→20:38)
[2018-02-02] MEDS: AMLODIPINE 10 MG TAB PO (08:06)
[2018-02-02] MEDS: FUROSEMIDE 40 MG TAB PO (08:06)
[2018-02-02] MEDS: METOPROLOL 25 MG TAB PO ×2 (08:07→20:31)
[2018-02-02] MEDS: ALBUTEROL/IPRATROPIUM (NEB) 3 ML AMP HHN ×4 (09:40→20:45)
[2018-02-02] MEDS: TAMSULOSIN (SR) 0.4 MG CAP PO (20:30)
[2018-02-02] MEDS: ATORVASTATIN 20 MG TAB PO (20:31)
[2018-02-03] MEDS: hydrALAzine 20 MG INJ IV (02:11)
[2018-02-03] MEDS: ACCU-CHEK XX (02:17)
[2018-02-03 05:18] LABS: ADD MAN DIFF? NO
[2018-02-03 05:21] LABS: BASOPHILS % 0.1 % (0.0-2.0); EOSINOPHILS % 0.2 % (0.0-7.0); HEMATOCRIT 24.4 % (42.0-52.0); HEMOGLOBIN 7.6 g/dl (14.0-18.0); LYMPHOCYTES # 0.8 10^3/ul (0.8-2.9); LYMPHOCYTES % 5.7 % (15.0-51.0); MEAN CORPUSCULAR HGB CONC 31.1 g/dl (32.0-37.0); MEAN CORPUSCULAR VOLUME 86.8 fl (82.0-101.0); MEAN PLATELET VOLUME 10.9 fl (7.4-10.4); MONOCYTE # 1.1 10^3/ul (0.3-0.9); NEUTROPHIL # 11.9 10^3/ul (1.6-7.5); NEUTROPHILS % 84.9 % (39.0-77.0); PLATELET COUNT 197 10^3/UL (140-415); RED BLOOD COUNT 2.81 10^6/ul (4.70-6.10); RED CELL DISTRIBUTION WIDTH 14.2 % (11.5-14.5)
[2018-02-03 05:47] LABS: ALANINE AMINOTRANSFERASE 49 IU/L (13-69); ALBUMIN 2.7 g/dl (3.3-4.9); ALBUMIN/GLOBULIN RATIO 0.75; ALKALINE PHOSPHATASE 111 IU/L (42-121); ANION GAP 12 (8-16); ASPARTATE AMINO TRANSFERASE 61 IU/L (15-46); BILIRUBIN,INDIRECT 0.1 mg/dl (0-1.1); BILIRUBIN,TOTAL 0.1 mg/dl (0.2-1.3); BLOOD UREA NITROGEN 21 mg/dl (7-20); CALCIUM 8.1 mg/dl (8.4-10.2); CARBON DIOXIDE 32 mmol/L (21-31); CHLORIDE 107 mmol/L (97-110); CREATININE 1.28 mg/dl (0.61-1.24); GLUCOSE 130 mg/dl (70-220); MAGNESIUM 1.9 mg/dl (1.7-2.5); SODIUM 148 mmol/L (135-144); TOTAL PROTEIN 6.3 g/dl (6.1-8.1)
[2018-02-03] MEDS: INSULIN ASPART [NOVOLOG] 3 ML PEN SC ×4 (07:59→20:49)
[2018-02-03] MEDS: AMLODIPINE 10 MG TAB PO (08:50)
[2018-02-03] MEDS: FUROSEMIDE 40 MG TAB PO (08:50)
[2018-02-03] MEDS: METOPROLOL 25 MG TAB PO ×2 (08:51→20:48)
[2018-02-03] MEDS: ALBUTEROL/IPRATROPIUM (NEB) 3 ML AMP HHN ×3 (09:20→20:06)
[2018-02-03] MEDS: POTASSIUM CHLORIDE (SR) 20 MEQ TAB PO (18:50)
[2018-02-03] MEDS: TAMSULOSIN (SR) 0.4 MG CAP PO (20:48)
[2018-02-03] MEDS: ATORVASTATIN 20 MG TAB PO (20:48)
[2018-02-04] MEDS: ACCU-CHEK XX (01:30)
[2018-02-04 06:11] LABS: ADD MAN DIFF? NO
[2018-02-04 06:26] LABS: BASOPHILS % 0.2 % (0.0-2.0); EOSINOPHILS % 0.3 % (0.0-7.0); HEMATOCRIT 24.5 % (42.0-52.0); HEMOGLOBIN 7.6 g/dl (14.0-18.0); LYMPHOCYTES # 0.7 10^3/ul (0.8-2.9); LYMPHOCYTES % 6.1 % (15.0-51.0); MEAN CORPUSCULAR HEMOGLOBIN 27.5 pg (29.0-33.0); MEAN CORPUSCULAR VOLUME 88.8 fl (82.0-101.0); MEAN PLATELET VOLUME 11.5 fl (7.4-10.4); MONOCYTE # 1.1 10^3/ul (0.3-0.9); NEUTROPHILS % 83.7 % (39.0-77.0); PLATELET COUNT 177 10^3/UL (140-415); RED BLOOD COUNT 2.76 10^6/ul (4.70-6.10); RED CELL DISTRIBUTION WIDTH 13.9 % (11.5-14.5)
[2018-02-04 06:51] LABS: ANION GAP 9 (8-16); BLOOD UREA NITROGEN 23 mg/dl (7-20); CALCIUM 8.1 mg/dl (8.4-10.2); CARBON DIOXIDE 36 mmol/L (21-31); CHLORIDE 104 mmol/L (97-110); GLUCOSE 123 mg/dl (70-220); MAGNESIUM 1.9 mg/dl (1.7-2.5); PHOSPHORUS 3.3 mg/dl (2.5-4.9); POTASSIUM 3.4 mmol/L (3.5-5.1); SODIUM 146 mmol/L (135-144)
[2018-02-04] MEDS: INSULIN ASPART [NOVOLOG] 3 ML PEN SC ×4 (08:15→21:00)
[2018-02-04] MEDS: ALBUTEROL/IPRATROPIUM (NEB) 3 ML AMP HHN ×5 (08:34→21:09)
[2018-02-04] MEDS: AMLODIPINE 10 MG TAB PO (08:49)
[2018-02-04] MEDS: FUROSEMIDE 40 MG TAB PO (08:50)
[2018-02-04] MEDS: METOPROLOL 25 MG TAB PO ×2 (08:50→21:13)
[2018-02-04] MEDS ORDERED: IOHEXOL 14.3 MG(I)/ML (ADULT) BTL PO (12:00)
[2018-02-04] MEDS: ATORVASTATIN 20 MG TAB PO (21:13)
[2018-02-04] MEDS: TAMSULOSIN (SR) 0.4 MG CAP PO (21:13)
[2018-02-04] MEDS: ALBUTEROL HFA 8 GM INHALER INH (21:32)
[2018-02-05] MEDS: ACCU-CHEK XX (01:31)
[2018-02-05] MEDS: INSULIN ASPART [NOVOLOG] 3 ML PEN SC ×4 (07:53→20:40)
[2018-02-05] MEDS: ALBUTEROL/IPRATROPIUM (NEB) 3 ML AMP HHN ×4 (08:26→20:14)
[2018-02-05] MEDS: FUROSEMIDE 40 MG TAB PO (08:37)
[2018-02-05] MEDS: AMLODIPINE 10 MG TAB PO (08:38)
[2018-02-05] MEDS: METOPROLOL 25 MG TAB PO ×2 (08:38→20:37)
[2018-02-05 11:54] LABS: HEMATOCRIT 26.1 % (42.0-52.0); HEMOGLOBIN 8.2 g/dl (14.0-18.0)
[2018-02-05 12:21] LABS: INR 1.13; PARTIAL THROMBOPLASTIN TIME 32.3 Sec (25.0-35.0); PROTIME 14.7 Sec (11.9-14.9); PT RATIO 1.1
[2018-02-05] MEDS: TAMSULOSIN (SR) 0.4 MG CAP PO (20:36)
[2018-02-05] MEDS: ATORVASTATIN 20 MG TAB PO (20:36)
[2018-02-06] MEDS: ACCU-CHEK XX (01:15)
[2018-02-06 05:54] LABS: WHITE BLOOD COUNT 12.3 10^3/ul (4.8-10.8)
[2018-02-06 05:54] LABS: ADD MAN DIFF? NO; BASOPHILS % 0.2 % (0.0-2.0); EOSINOPHILS # 0.1 10^3/ul (0.0-0.5); EOSINOPHILS % 0.5 % (0.0-7.0); HEMATOCRIT 25.1 % (42.0-52.0); HEMOGLOBIN 7.9 g/dl (14.0-18.0); LYMPHOCYTES # 0.7 10^3/ul (0.8-2.9); LYMPHOCYTES % 5.7 % (15.0-51.0); MEAN CORPUSCULAR HEMOGLOBIN 27.4 pg (29.0-33.0); MEAN CORPUSCULAR HGB CONC 31.5 g/dl (32.0-37.0); MEAN CORPUSCULAR VOLUME 87.2 fl (82.0-101.0); MEAN PLATELET VOLUME 11.7 fl (7.4-10.4); MONOCYTE # 1.1 10^3/ul (0.3-0.9); NEUTROPHIL # 10.3 10^3/ul (1.6-7.5); NEUTROPHILS % 83.7 % (39.0-77.0); PLATELET COUNT 170 10^3/UL (140-415); RED BLOOD COUNT 2.88 10^6/ul (4.70-6.10); RED CELL DISTRIBUTION WIDTH 13.6 % (11.5-14.5)
[2018-02-06 06:17] LABS: ANION GAP 10 (8-16); BLOOD UREA NITROGEN 20 mg/dl (7-20); CALCIUM 8.2 mg/dl (8.4-10.2); CARBON DIOXIDE 37 mmol/L (21-31); CHLORIDE 100 mmol/L (97-110); CREATININE 1.25 mg/dl (0.61-1.24); GLUCOSE 120 mg/dl (70-220); POTASSIUM 3.6 mmol/L (3.5-5.1); SODIUM 143 mmol/L (135-144)
[2018-02-06] MEDS: INSULIN ASPART [NOVOLOG] 3 ML PEN SC ×4 (08:15→21:00)
[2018-02-06] MEDS: METOPROLOL 25 MG TAB PO ×3 (08:54→21:04)
[2018-02-06] MEDS: AMLODIPINE 10 MG TAB PO ×2 (08:54→16:34)
[2018-02-06] MEDS: FUROSEMIDE 40 MG TAB PO ×2 (08:54→16:33)
[2018-02-06] MEDS: ALBUTEROL/IPRATROPIUM (NEB) 3 ML AMP HHN ×4 (09:12→20:09)
[2018-02-06] MEDS: hydrALAzine 20 MG INJ IV (11:38)
[2018-02-06] MEDS: HYDROmorphONE 0.5 MG/0.5 ML SYG IV (11:50)
[2018-02-06] MEDS: ATORVASTATIN 20 MG TAB PO (21:04)
[2018-02-06] MEDS: TAMSULOSIN (SR) 0.4 MG CAP PO (21:04)
[2018-02-07] MEDS: ACCU-CHEK XX (02:00)
[2018-02-07 06:07] LABS: ADD MAN DIFF? NO
[2018-02-07 06:23] LABS: WHITE BLOOD COUNT 11.5 10^3/ul (4.8-10.8)
[2018-02-07 06:23] LABS: ABNORMAL IP MESSAGE 1; BASOPHILS % 0.2 % (0.0-2.0); EOSINOPHILS % 0.3 % (0.0-7.0); HEMATOCRIT 22.9 % (42.0-52.0); HEMOGLOBIN 7.2 g/dl (14.0-18.0); LYMPHOCYTES # 0.5 10^3/ul (0.8-2.9); LYMPHOCYTES % 4.1 % (15.0-51.0); MEAN CORPUSCULAR HEMOGLOBIN 27.2 pg (29.0-33.0); MEAN CORPUSCULAR HGB CONC 31.4 g/dl (32.0-37.0); MEAN CORPUSCULAR VOLUME 86.4 fl (82.0-101.0); MEAN PLATELET VOLUME 12.1 fl (7.4-10.4); MONOCYTE # 1.1 10^3/ul (0.3-0.9); MONOCYTES % 9.3 % (0.0-11.0); NEUTROPHIL # 9.8 10^3/ul (1.6-7.5); NEUTROPHILS % 85.2 % (39.0-77.0); PLATELET COUNT 154 10^3/UL (140-415); POSITIVE DIFF @See below; RED BLOOD COUNT 2.65 10^6/ul (4.70-6.10); RED CELL DISTRIBUTION WIDTH 13.8 % (11.5-14.5)
[2018-02-07 06:41] LABS: ANION GAP 12 (8-16); BLOOD UREA NITROGEN 21 mg/dl (7-20); CALCIUM 7.8 mg/dl (8.4-10.2); CARBON DIOXIDE 33 mmol/L (21-31); CHLORIDE 102 mmol/L (97-110); CREATININE 1.32 mg/dl (0.61-1.24); GLUCOSE 101 mg/dl (70-220); SODIUM 144 mmol/L (135-144)
[2018-02-07] MEDS: INSULIN ASPART [NOVOLOG] 3 ML PEN SC ×4 (08:14→21:00)
[2018-02-07] MEDS: ALBUTEROL/IPRATROPIUM (NEB) 3 ML AMP HHN ×4 (08:25→20:32)
[2018-02-07] MEDS: FUROSEMIDE 40 MG TAB PO (09:00)
[2018-02-07] MEDS: METOPROLOL 25 MG TAB PO ×2 (09:00→21:15)
[2018-02-07] MEDS: AMLODIPINE 10 MG TAB PO (09:01)
[2018-02-07] MEDS: POTASSIUM CHLORIDE 100 ML IVPB (12:12)
[2018-02-07 16:51] LABS: IMMEDIATE SPIN CROSSMATCH 1 1
[2018-02-07] MEDS: SOD CHLORIDE 0.9% 250 ML IV* (17:00)
[2018-02-07] MEDS: hydrALAzine 20 MG INJ IV (17:42)
[2018-02-07] MEDS: ATORVASTATIN 20 MG TAB PO (21:14)
[2018-02-07] MEDS: TAMSULOSIN (SR) 0.4 MG CAP PO (21:14)
[2018-02-08] MEDS: ACCU-CHEK XX (02:00)
[2018-02-08 05:51] LABS: ADD MAN DIFF? NO
[2018-02-08 05:53] LABS: WHITE BLOOD COUNT 16.2 10^3/ul (4.8-10.8)
[2018-02-08 05:53] LABS: ABNORMAL IP MESSAGE 1; BASOPHILS % 0.1 % (0.0-2.0); EOSINOPHILS # 0.1 10^3/ul (0.0-0.5); EOSINOPHILS % 0.4 % (0.0-7.0); HEMATOCRIT 24.9 % (42.0-52.0); HEMOGLOBIN 8.1 g/dl (14.0-18.0); LYMPHOCYTES # 0.4 10^3/ul (0.8-2.9); LYMPHOCYTES % 2.5 % (15.0-51.0); MEAN CORPUSCULAR HEMOGLOBIN 27.9 pg (29.0-33.0); MEAN CORPUSCULAR HGB CONC 32.5 g/dl (32.0-37.0); MEAN CORPUSCULAR VOLUME 85.9 fl (82.0-101.0); MEAN PLATELET VOLUME 11.9 fl (7.4-10.4); MONOCYTE # 1.3 10^3/ul (0.3-0.9); MONOCYTES % 8.2 % (0.0-11.0); NEUTROPHIL # 14.2 10^3/ul (1.6-7.5); NEUTROPHILS % 87.7 % (39.0-77.0); PLATELET COUNT 187 10^3/UL (140-415); POSITIVE DIFF @See below; RED CELL DISTRIBUTION WIDTH 13.4 % (11.5-14.5)
[2018-02-08 06:28] LABS: ANION GAP 14 (8-16); BLOOD UREA NITROGEN 23 mg/dl (7-20); CALCIUM 7.9 mg/dl (8.4-10.2); CARBON DIOXIDE 32 mmol/L (21-31); CHLORIDE 100 mmol/L (97-110); CREATININE 1.31 mg/dl (0.61-1.24); GLUCOSE 110 mg/dl (70-220); POTASSIUM 3.3 mmol/L (3.5-5.1); SODIUM 143 mmol/L (135-144)
[2018-02-08] MEDS: INSULIN ASPART [NOVOLOG] 3 ML PEN SC ×4 (07:53→20:52)
[2018-02-08] MEDS: METOPROLOL 25 MG TAB PO ×2 (08:33→20:49)
[2018-02-08] MEDS: AMLODIPINE 10 MG TAB PO (08:34)
[2018-02-08] MEDS: FUROSEMIDE 40 MG TAB PO (08:42)
[2018-02-08] MEDS: ALBUTEROL/IPRATROPIUM (NEB) 3 ML AMP HHN (09:00)
[2018-02-08] MEDS: morphine LIQ (10 MG/5 ML) CUP PO (09:31)
[2018-02-08] MEDS ORDERED: LEVALBUTEROL (NEB) 0.63 MG/3 ML AMP INH (11:00)
[2018-02-08] MEDS ORDERED: IPRATROPIUM (NEB) 0.5 MG/2.5 ML AMP INH (11:00)
[2018-02-08] MEDS: POTASSIUM CHLORIDE 100 ML IVPB ×3 (11:26→16:15)
[2018-02-08] MEDS: IPRATROPIUM (NEB) 0.5 MG/2.5 ML AMP HHN ×3 (12:30→20:37)
[2018-02-08] MEDS: LEVALBUTEROL (NEB) 0.63 MG/3 ML AMP HHN ×3 (12:31→20:37)
[2018-02-08] MEDS: ATORVASTATIN 20 MG TAB PO (20:49)
[2018-02-08] MEDS: TAMSULOSIN (SR) 0.4 MG CAP PO (20:49)
[2018-02-09] MEDS: IPRATROPIUM (NEB) 0.5 MG/2.5 ML AMP HHN ×6 (01:50→20:41)
[2018-02-09] MEDS: LEVALBUTEROL (NEB) 0.63 MG/3 ML AMP HHN ×6 (01:50→20:41)
[2018-02-09] MEDS: ACCU-CHEK XX (02:00)
[2018-02-09 06:17] LABS: ADD MAN DIFF? NO
[2018-02-09 06:19] LABS: ABNORMAL IP MESSAGE 1; BASOPHILS % 0.2 % (0.0-2.0); EOSINOPHILS # 0.3 10^3/ul (0.0-0.5); EOSINOPHILS % 2.2 % (0.0-7.0); HEMATOCRIT 24.7 % (42.0-52.0); LYMPHOCYTES # 0.5 10^3/ul (0.8-2.9); LYMPHOCYTES % 4.3 % (15.0-51.0); MEAN CORPUSCULAR HEMOGLOBIN 27.9 pg (29.0-33.0); MEAN CORPUSCULAR HGB CONC 32.4 g/dl (32.0-37.0); MEAN CORPUSCULAR VOLUME 86.1 fl (82.0-101.0); MEAN PLATELET VOLUME 12.3 fl (7.4-10.4); MONOCYTE # 1.1 10^3/ul (0.3-0.9); MONOCYTES % 9.4 % (0.0-11.0); NEUTROPHIL # 9.5 10^3/ul (1.6-7.5); NEUTROPHILS % 83.4 % (39.0-77.0); PLATELET COUNT 173 10^3/UL (140-415); POSITIVE DIFF @See below; RED BLOOD COUNT 2.87 10^6/ul (4.70-6.10); RED CELL DISTRIBUTION WIDTH 13.8 % (11.5-14.5)
[2018-02-09 06:19] LABS: WHITE BLOOD COUNT 11.4 10^3/ul (4.8-10.8)
[2018-02-09 07:05] LABS: ANION GAP 12 (8-16); BLOOD UREA NITROGEN 27 mg/dl (7-20); CALCIUM 7.8 mg/dl (8.4-10.2); CARBON DIOXIDE 33 mmol/L (21-31); CHLORIDE 99 mmol/L (97-110); CREATININE 1.48 mg/dl (0.61-1.24); GLUCOSE 141 mg/dl (70-220); POTASSIUM 3.5 mmol/L (3.5-5.1); SODIUM 140 mmol/L (135-144)
[2018-02-09] MEDS: INSULIN ASPART [NOVOLOG] 3 ML PEN SC ×4 (08:03→21:00)
[2018-02-09] MEDS: AMLODIPINE 10 MG TAB PO (08:22)
[2018-02-09] MEDS: METOPROLOL 25 MG TAB PO ×2 (08:22→21:17)
[2018-02-09] MEDS: FUROSEMIDE 40 MG TAB PO (08:22)
[2018-02-09] MEDS: ACETAMINOPHEN 325 MG TAB PO (08:58)
[2018-02-09] MEDS ORDERED: GUAIFENESIN 20 MG/ML 5ML CUP PO (11:30)
[2018-02-09] MEDS ORDERED: CEPASTAT LOZENGE MT (11:30)
[2018-02-09] MEDS: FUROSEMIDE 20 MG INJ IV (11:51)
[2018-02-09] MEDS: TAMSULOSIN (SR) 0.4 MG CAP PO (21:16)
[2018-02-09] MEDS: ATORVASTATIN 20 MG TAB PO (21:16)
[2018-02-10] MEDS: IPRATROPIUM (NEB) 0.5 MG/2.5 ML AMP HHN ×6 (00:13→20:27)
[2018-02-10] MEDS: LEVALBUTEROL (NEB) 0.63 MG/3 ML AMP HHN ×6 (00:13→20:27)
[2018-02-10] MEDS: ACCU-CHEK XX (02:00)
[2018-02-10 05:37] LABS: ADD MAN DIFF? NO
[2018-02-10 05:40] LABS: WHITE BLOOD COUNT 9.7 10^3/ul (4.8-10.8)
[2018-02-10 05:40] LABS: ABNORMAL IP MESSAGE 1; BASOPHILS % 0.1 % (0.0-2.0); EOSINOPHILS # 0.2 10^3/ul (0.0-0.5); EOSINOPHILS % 2.5 % (0.0-7.0); HEMATOCRIT 24.4 % (42.0-52.0); LYMPHOCYTES # 0.5 10^3/ul (0.8-2.9); LYMPHOCYTES % 5.5 % (15.0-51.0); MEAN CORPUSCULAR HEMOGLOBIN 28.2 pg (29.0-33.0); MEAN CORPUSCULAR HGB CONC 32.8 g/dl (32.0-37.0); MEAN CORPUSCULAR VOLUME 85.9 fl (82.0-101.0); MEAN PLATELET VOLUME 12.1 fl (7.4-10.4); MONOCYTE # 0.8 10^3/ul (0.3-0.9); MONOCYTES % 8.5 % (0.0-11.0); NEUTROPHILS % 82.5 % (39.0-77.0); PLATELET COUNT 189 10^3/UL (140-415); POSITIVE DIFF @See below; RED BLOOD COUNT 2.84 10^6/ul (4.70-6.10); RED CELL DISTRIBUTION WIDTH 13.2 % (11.5-14.5)
[2018-02-10 06:35] LABS: ANION GAP 11 (8-16); BLOOD UREA NITROGEN 26 mg/dl (7-20); CALCIUM 7.9 mg/dl (8.4-10.2); CARBON DIOXIDE 34 mmol/L (21-31); CHLORIDE 99 mmol/L (97-110); CREATININE 1.32 mg/dl (0.61-1.24); GLUCOSE 134 mg/dl (70-220); POTASSIUM 3.5 mmol/L (3.5-5.1); SODIUM 140 mmol/L (135-144)
[2018-02-10] MEDS: INSULIN ASPART [NOVOLOG] 3 ML PEN SC ×4 (08:15→21:00)
[2018-02-10] MEDS: METOPROLOL 25 MG TAB PO ×2 (08:37→21:22)
[2018-02-10] MEDS: FUROSEMIDE 40 MG TAB PO (08:37)
[2018-02-10] MEDS: AMLODIPINE 10 MG TAB PO (08:37)
[2018-02-10] MEDS: TAMSULOSIN (SR) 0.4 MG CAP PO (21:22)
[2018-02-10] MEDS: ATORVASTATIN 20 MG TAB PO (21:22)
[2018-02-11] MEDS: IPRATROPIUM (NEB) 0.5 MG/2.5 ML AMP HHN ×4 (00:56→13:30)
[2018-02-11] MEDS: LEVALBUTEROL (NEB) 0.63 MG/3 ML AMP HHN ×6 (00:56→20:12)
[2018-02-11] MEDS: ACCU-CHEK XX (02:00)
[2018-02-11] MEDS: INSULIN ASPART [NOVOLOG] 3 ML PEN SC ×4 (07:38→20:37)
[2018-02-11] MEDS: FUROSEMIDE 40 MG TAB PO (08:18)
[2018-02-11] MEDS: AMLODIPINE 10 MG TAB PO (08:18)
[2018-02-11] MEDS: METOPROLOL 25 MG TAB PO ×2 (08:19→20:33)
[2018-02-11 20:23] LABS: AMMONIA < 9 umol/l (9-30)
[2018-02-11] MEDS: ATORVASTATIN 20 MG TAB PO (20:33)
[2018-02-11] MEDS: TAMSULOSIN (SR) 0.4 MG CAP PO (20:33)
[2018-02-12] MEDS: LEVALBUTEROL (NEB) 0.63 MG/3 ML AMP HHN ×6 (01:00→20:40)
[2018-02-12] MEDS: ACCU-CHEK XX (02:00)
[2018-02-12 05:37] LABS: ADD MAN DIFF? NO
[2018-02-12 05:47] LABS: WHITE BLOOD COUNT 11.9 10^3/ul (4.8-10.8)
[2018-02-12 05:47] LABS: ABNORMAL IP MESSAGE 1; BASOPHILS % 0.2 % (0.0-2.0); EOSINOPHILS # 0.1 10^3/ul (0.0-0.5); EOSINOPHILS % 0.5 % (0.0-7.0); HEMATOCRIT 18.7 % (42.0-52.0); LYMPHOCYTES # 0.7 10^3/ul (0.8-2.9); LYMPHOCYTES % 5.4 % (15.0-51.0); MEAN CORPUSCULAR HEMOGLOBIN 28.2 pg (29.0-33.0); MEAN CORPUSCULAR HGB CONC 32.1 g/dl (32.0-37.0); MEAN CORPUSCULAR VOLUME 87.8 fl (82.0-101.0); MEAN PLATELET VOLUME 11.5 fl (7.4-10.4); MONOCYTE # 1.3 10^3/ul (0.3-0.9); MONOCYTES % 10.9 % (0.0-11.0); NEUTROPHIL # 9.7 10^3/ul (1.6-7.5); NEUTROPHILS % 81.5 % (39.0-77.0); PLATELET COUNT 202 10^3/UL (140-415); POSITIVE DIFF @See below; RED BLOOD COUNT 2.13 10^6/ul (4.70-6.10); RED CELL DISTRIBUTION WIDTH 13.9 % (11.5-14.5)
[2018-02-12 06:21] LABS: ANION GAP 12 (8-16); BLOOD UREA NITROGEN 39 mg/dl (7-20); CALCIUM 7.8 mg/dl (8.4-10.2); CARBON DIOXIDE 31 mmol/L (21-31); CHLORIDE 100 mmol/L (97-110); CREATININE 1.46 mg/dl (0.61-1.24); GLUCOSE 147 mg/dl (70-220); PHOSPHORUS 3.6 mg/dl (2.5-4.9); POTASSIUM 3.8 mmol/L (3.5-5.1); SODIUM 139 mmol/L (135-144)
[2018-02-12] MEDS: INSULIN ASPART [NOVOLOG] 3 ML PEN SC ×4 (08:29→20:51)
[2018-02-12] MEDS: AMLODIPINE 10 MG TAB PO (09:12)
[2018-02-12] MEDS: METOPROLOL 25 MG TAB PO ×2 (09:13→20:51)
[2018-02-12] MEDS: FUROSEMIDE 40 MG TAB PO (09:13)
[2018-02-12 19:19] LABS: WHITE BLOOD COUNT 12.2 10^3/ul (4.8-10.8)
[2018-02-12 19:19] LABS: ABNORMAL IP MESSAGE 1; HEMATOCRIT 19.7 % (42.0-52.0); MEAN CORPUSCULAR HEMOGLOBIN 28.5 pg (29.0-33.0); MEAN CORPUSCULAR VOLUME 86.4 fl (82.0-101.0); MEAN PLATELET VOLUME 11.4 fl (7.4-10.4); PLATELET COUNT 190 10^3/UL (140-415); POSITIVE DIFF @See below; RED BLOOD COUNT 2.28 10^6/ul (4.70-6.10); RED CELL DISTRIBUTION WIDTH 13.7 % (11.5-14.5)
[2018-02-12 19:28] LABS: ADD MAN DIFF? YES
[2018-02-12 19:29] LABS: HEMOGLOBIN 6.5 g/dl (14.0-18.0)
[2018-02-12] MEDS: ATORVASTATIN 20 MG TAB PO (20:51)
[2018-02-12] MEDS: TAMSULOSIN (SR) 0.4 MG CAP PO (20:51)
[2018-02-12 21:46] LABS: IMMEDIATE SPIN CROSSMATCH 1 2
[2018-02-13] MEDS: LEVALBUTEROL (NEB) 0.63 MG/3 ML AMP HHN ×6 (01:18→21:12)
[2018-02-13] MEDS: ACCU-CHEK XX (02:00)
[2018-02-13 05:57] LABS: ADD MAN DIFF? NO
[2018-02-13 06:01] LABS: ABNORMAL IP MESSAGE 1; BASOPHILS % 0.3 % (0.0-2.0); EOSINOPHILS # 0.2 10^3/ul (0.0-0.5); EOSINOPHILS % 1.9 % (0.0-7.0); HEMATOCRIT 21.6 % (42.0-52.0); HEMOGLOBIN 7.3 g/dl (14.0-18.0); LYMPHOCYTES # 0.9 10^3/ul (0.8-2.9); LYMPHOCYTES % 7.3 % (15.0-51.0); MEAN CORPUSCULAR HEMOGLOBIN 28.7 pg (29.0-33.0); MEAN CORPUSCULAR HGB CONC 33.8 g/dl (32.0-37.0); MEAN PLATELET VOLUME 11.7 fl (7.4-10.4); MONOCYTE # 1.6 10^3/ul (0.3-0.9); PLATELET COUNT 181 10^3/UL (140-415); POSITIVE DIFF @See below; RED BLOOD COUNT 2.54 10^6/ul (4.70-6.10)
[2018-02-13 06:10] LABS: ANION GAP 11 (8-16); BLOOD UREA NITROGEN 64 mg/dl (7-20); CALCIUM 7.9 mg/dl (8.4-10.2); CARBON DIOXIDE 32 mmol/L (21-31); CHLORIDE 103 mmol/L (97-110); CREATININE 1.63 mg/dl (0.61-1.24); GLUCOSE 129 mg/dl (70-220); POTASSIUM 3.6 mmol/L (3.5-5.1); SODIUM 142 mmol/L (135-144)
[2018-02-13] MEDS: INSULIN ASPART [NOVOLOG] 3 ML PEN SC ×4 (07:59→20:54)
[2018-02-13] MEDS: FUROSEMIDE 40 MG TAB PO (08:15)
[2018-02-13] MEDS: METOPROLOL 25 MG TAB PO ×2 (08:15→20:54)
[2018-02-13] MEDS: AMLODIPINE 10 MG TAB PO (08:15)
[2018-02-13] MEDS: FUROSEMIDE 40 MG INJ IV ×2 (14:17→18:36)
[2018-02-13] MEDS: IPRATROPIUM (NEB) 0.5 MG/2.5 ML AMP HHN (16:51)
[2018-02-13] MEDS: TAMSULOSIN (SR) 0.4 MG CAP PO (20:53)
[2018-02-13] MEDS: ATORVASTATIN 20 MG TAB PO (20:53)
[2018-02-14] MEDS: LEVALBUTEROL (NEB) 0.63 MG/3 ML AMP HHN ×6 (00:49→21:30)
[2018-02-14] MEDS: ACCU-CHEK XX ×2 (02:00→20:50)
[2018-02-14] MEDS: FUROSEMIDE 40 MG INJ IV ×2 (05:09→18:25)
[2018-02-14 06:48] LABS: ADD MAN DIFF? NO
[2018-02-14 06:56] LABS: WHITE BLOOD COUNT 9.5 10^3/ul (4.8-10.8)
[2018-02-14 06:56] LABS: BASOPHILS % 0.2 % (0.0-2.0); EOSINOPHILS # 0.2 10^3/ul (0.0-0.5); HEMATOCRIT 23.3 % (42.0-52.0); HEMOGLOBIN 7.6 g/dl (14.0-18.0); LYMPHOCYTES # 0.6 10^3/ul (0.8-2.9); LYMPHOCYTES % 6.3 % (15.0-51.0); MEAN CORPUSCULAR HGB CONC 32.6 g/dl (32.0-37.0); MONOCYTES % 10.2 % (0.0-11.0); NEUTROPHIL # 7.6 10^3/ul (1.6-7.5); NEUTROPHILS % 79.6 % (39.0-77.0); NUCLEATED RED BLOOD CELLS% 0.2 /100WBC (0.0-0.0); PLATELET COUNT 179 10^3/UL (140-415); RED BLOOD COUNT 2.71 10^6/ul (4.70-6.10); RED CELL DISTRIBUTION WIDTH 14.6 % (11.5-14.5)
[2018-02-14 07:28] LABS: ANION GAP 14 (8-16); BLOOD UREA NITROGEN 57 mg/dl (7-20); CARBON DIOXIDE 32 mmol/L (21-31); CHLORIDE 102 mmol/L (97-110); CREATININE 1.36 mg/dl (0.61-1.24); GLUCOSE 126 mg/dl (70-220); POTASSIUM 3.2 mmol/L (3.5-5.1); SODIUM 145 mmol/L (135-144)
[2018-02-14] MEDS: INSULIN ASPART [NOVOLOG] 3 ML PEN SC ×4 (08:15→20:49)
[2018-02-14] MEDS: AMLODIPINE 10 MG TAB PO (08:21)
[2018-02-14] MEDS: METOPROLOL 25 MG TAB PO ×2 (08:22→20:49)
[2018-02-14] MEDS: POTASSIUM CHLORIDE (SR) 20 MEQ TAB PO (09:47)
[2018-02-14] MEDS: TAMSULOSIN (SR) 0.4 MG CAP PO (20:48)
[2018-02-14] MEDS: ATORVASTATIN 20 MG TAB PO (20:48)
[2018-02-15] MEDS: LEVALBUTEROL (NEB) 0.63 MG/3 ML AMP HHN ×6 (01:15→20:42)
[2018-02-15] MEDS: FUROSEMIDE 40 MG INJ IV ×2 (06:08→18:22)
[2018-02-15 06:14] LABS: ADD MAN DIFF? NO
[2018-02-15 06:23] LABS: BASOPHILS % 0.4 % (0.0-2.0); EOSINOPHILS # 0.1 10^3/ul (0.0-0.5); EOSINOPHILS % 1.3 % (0.0-7.0); HEMATOCRIT 23.5 % (42.0-52.0); HEMOGLOBIN 7.7 g/dl (14.0-18.0); LYMPHOCYTES # 0.6 10^3/ul (0.8-2.9); LYMPHOCYTES % 8.1 % (15.0-51.0); MEAN CORPUSCULAR HEMOGLOBIN 28.6 pg (29.0-33.0); MEAN CORPUSCULAR HGB CONC 32.8 g/dl (32.0-37.0); MEAN CORPUSCULAR VOLUME 87.4 fl (82.0-101.0); MEAN PLATELET VOLUME 11.7 fl (7.4-10.4); MONOCYTE # 0.8 10^3/ul (0.3-0.9); NEUTROPHIL # 5.9 10^3/ul (1.6-7.5); NEUTROPHILS % 78.6 % (39.0-77.0); PLATELET COUNT 196 10^3/UL (140-415); RED BLOOD COUNT 2.69 10^6/ul (4.70-6.10); RED CELL DISTRIBUTION WIDTH 14.4 % (11.5-14.5)
[2018-02-15 06:23] LABS: WHITE BLOOD COUNT 7.5 10^3/ul (4.8-10.8)
[2018-02-15 06:47] LABS: ANION GAP 12 (8-16); BLOOD UREA NITROGEN 45 mg/dl (7-20); CALCIUM 8.1 mg/dl (8.4-10.2); CARBON DIOXIDE 34 mmol/L (21-31); CHLORIDE 103 mmol/L (97-110); CREATININE 1.28 mg/dl (0.61-1.24); GLUCOSE 126 mg/dl (70-220); MAGNESIUM 2.1 mg/dl (1.7-2.5); PHOSPHORUS 3.9 mg/dl (2.5-4.9); POTASSIUM 3.8 mmol/L (3.5-5.1); SODIUM 145 mmol/L (135-144)
[2018-02-15] MEDS: INSULIN ASPART [NOVOLOG] 3 ML PEN SC ×4 (08:10→20:30)
[2018-02-15] MEDS: METOPROLOL 25 MG TAB PO ×2 (08:39→20:21)
[2018-02-15] MEDS: AMLODIPINE 10 MG TAB PO (08:39)
[2018-02-15] MEDS: ATORVASTATIN 20 MG TAB PO (20:20)
[2018-02-15] MEDS: TAMSULOSIN (SR) 0.4 MG CAP PO (20:21)
[2018-02-15] MEDS: IPRATROPIUM (NEB) 0.5 MG/2.5 ML AMP HHN (20:41)
[2018-02-16] MEDS: LEVALBUTEROL (NEB) 0.63 MG/3 ML AMP HHN ×2 (00:38→05:00)
[2018-02-16] MEDS: ACCU-CHEK XX (02:14)
[2018-02-16] MEDS: FUROSEMIDE 40 MG INJ IV (06:44)
[2018-02-16] MEDS: INSULIN ASPART [NOVOLOG] 3 ML PEN SC (08:06)
[2018-02-16] MEDS: METOPROLOL 25 MG TAB PO (08:11)
[2018-02-16] MEDS: AMLODIPINE 10 MG TAB PO (08:11)
== END 2018-02-16 10:15 | DRG 987 ==
LOC: MS2 02-12 12:05 → TEL 21:14 → E/R 09:12 → MS2 01-17 20:44 → TEL 19:47
PROC: 04L33DZ Occlusion of Hepatic Artery with Intraluminal Device, Percutaneous Approach (ICD-10-PCS; principal; 2018-01-18 16:50)
PROC: 0DJD8ZZ Inspection of Lower Intestinal Tract, Via Natural or Artificial Opening Endoscopic (ICD-10-PCS; 2018-01-18 16:50)
PROC: 0FB23ZX Excision of Left Lobe Liver, Percutaneous Approach, Diagnostic (ICD-10-PCS; 2018-01-18 16:50)
PROC: 30233N1 Transfusion of Nonautologous Red Blood Cells into Peripheral Vein, Percutaneous Approach (ICD-10-PCS; 2018-01-18 16:50)
DX: C78.7 Secondary malignant neoplasm of liver and intrahepatic bile duct (principal); K66.1 Hemoperitoneum; N17.0 Acute kidney failure with tubular necrosis; R18.8 Other ascites; K56.7 Ileus, unspecified; K35.80 Unspecified acute appendicitis; K91.840 Postprocedural hemorrhage of a digestive system organ or structure following a digestive system procedure; D62 Acute posthemorrhagic anemia; C61 Malignant neoplasm of prostate; K80.20 Calculus of gallbladder without cholecystitis without obstruction; M25.461 Effusion, right knee; I10 Essential (primary) hypertension; E11.9 Type 2 diabetes mellitus without complications; K62.1 Rectal polyp; D50.9 Iron deficiency anemia, unspecified; E83.51 Hypocalcemia; M79.89 Other specified soft tissue disorders
CPT/HCPCS: 36430; 71045; 71275; 73560; 74018; 74176; 74177; 74183; 76775; 77012; 78278; 80048; 80053; 80061; 80076; 81001; 82105; 82140; 82378; 82540; 82550; 82553; 82962; 83036; 83605; 83690; 83735; 83880; 84100; 84153; 84154; 84155; 84300; 84443; 84484; 85014; 85018; 85025; 85610; 85730; 86704; 86706; 86803; 86850; 86900; 86901; 86920; 87040; 87086; 87340; 88104; 88305; 88307; 88312; 88341; 88342; 93005; 93306; 94640; 94664; 96372; 96374; 96375; 96376; 97110; 97116; 97163; 97530; 99217; 99285-25; G0378